=== PATIENT | female | born 1990 | race Caucasian/White ===

== ENCOUNTER 2019-11-15 10:04 | Observation (INO) | payer SELFPAY ==
[2019-11-15] VITALS (16 sets, daily range): BP systolic 88–115; BP diastolic 50–68; PULSE 82–120; RESP 15–20; TEMP 36.6–36.8; O2SAT 97–100; BMI 28.2
--- NOTE | 2019-11-15 10:47 | W.ED.FEMALGU ---
HPI - Female Genitourinary General: Chief complaint: Abdominal Pain Stated complaint: Vag bleeding Time Seen by Provider: 11/15/19 10:23 Source: patient Mode of arrival: ambulatory Limitations: no limitations History of Present Illness: HPI Narrative: pt is a female at 14 wks here for evaluation following an US yesterday at [facility] which showed demise; pt concerned bc bleeding continues to worsen MD elicited complaint: vaginal bleeding Consistency: constant Vaginal bleeding: heavy Associated symptoms: Reports abdominal pain and vaginal bleeding; Deny nausea Patient : Yes Date of Last Menstrual Period: 07/30/19 Review of Systems GI: Reports: abdominal pain; Denies: nausea or vomiting : Reports: vaginal bleeding and pelvic pain; Denies: difficulty urinating, painful urination, urinary frequency, urinary urgency or urinary hesitancy PFSH ED PFSH: Statuses (acute, chronic, etc) shown below reflect problem list status as previously entered and may not be historically accurate Social History Smoking and tobacco status: never smoked Female Reproductive History: Date of last menstrual period: 07/30/19 Physical Exam Const: COMMON NORMALS: no apparent distress, average body habitus, oriented x3, healthy appearing, alert and well nourished Resp: COMMON NORMALS: normal respiratory effort and clear to auscultation bilaterally AUSCULTATION: clear to auscultation bilaterally Cardio: COMMON NORMALS: regular rate and regular rhythm RATE: regular rate RHYTHM: regular rhythm : SPECULUM EXAM - VAGINA: Yes vaginal bleeding Amount: large/heavy and Yes tissue present in vagina (amniotic sac visualized) OB/EXTERNAL & SPECULUM: tissue present in vagina (amniotic sac visualized) and vaginal bleeding Neuro: COMMON NORMALS: oriented x3 SENSORIUM/ORIENTATION: Yes alert Course Vital Signs: Vital signs: Vital Signs Temperature 98.3 F 11/15/19 10:14 Pulse Rate 87 11/15/19 12:05 Respiratory Rate 16 11/15/19 12:05 Blood Pressure 94/54 11/15/19 12:05 Pulse Oximetry 99 11/15/19 12:05 MDM - Female MDM Narrative: Medical decision making narrative: Dr. Velasco was requested after I visualized partial amniotic sac in her vaginal canal. Dr. Cavanaugh ruptured sac and removed products of conception (these were sent for pathology); patient continued to have heavy bleeding; Dr. Albino was promptly consulted to take patient to the OR for a D&C; pt given cytotec, TXA, hemabate here; rhogam ordered as pt is O neg Lab Data: Labs: Lab Results 11/15/19 11/15/19 11/15/19 Range/Units 10:35 10:35 10:47 WBC 9.7 (4.0-10.0) 10^3/ uL RBC 3.84 L (4.1-5.3) 10^6/u L Hgb 11.3 L (11.5-15.3) g/dL Hct 33.8 L (37.0-47.0) % MCV 88.0 (81-99) fL MCH 29.4 (28.0-34.0) pg MCHC 33.4 (30.0-36.0) g/dL RDW 13.9 (12.1-15.1) % Plt Count 179 (130-400) 10^3/c mm MPV 9.6 (7.4-10.4) fL Neut % (Auto) 75.2 % Lymph % (Auto) 19.1 % [place] % (Auto) 4.5 % Eos % (Auto) 0.6 % Baso % (Auto) 0.2 % Neut # (Auto) 7.3 (1.8-7.7) 10^3/u L Lymph # (Auto) 1.9 (0.8-4.8) 10^3/u L [place] # (Auto) 0.4 (0.2-0.9) 10^3/u L Eos # (Auto) 0.1 (0.0-0.8) 10^3/u L Baso # (Auto) 0.0 (0.0-0.1) 10^3/u L Nucleated RBC % (a uto) 0 % Nucleated RBCs # 0.0 /100WBC Sodium 139 (136-145) mmol/L Potassium 3.6 (3.5-5.1) mmol/L Chloride 105 (98-107) mmol/L Carbon Dioxide 24 (22-29) mmol/L Anion Gap 13.6 (5-19) BUN 10 (6-20) mg/dL Creatinine 0.6 (0.5-0.9) mg/dL GFR Calculation 119.0 (90-130) mL/min Glucose 112 H (74-109) mg/dL Calcium 9.2 (8.6-10.0) mg/Dl Total Bilirubin 0.3 (0.15-1.2) mg/dL AST 18 (0-32) U/L ALT 11 (0-33) U/L Alkaline Phosphata se 48 (35-105) IU/L Total Protein 6.8 (6.6-8.7) g/dL Albumin 4.0 (3.5-5.2) g/dL Globulin 2.8 (1.3-4.6) g/dL Blood Type O Negative Crossmatch See Detail Discharge Plan Discharge Patient Disposition: Xfer Other Clinical Impression: Incomplete miscarriage Condition: Stable Discharge Date/Time: 11/15/19 12:06 Coding Level of Care Code ED Dye Weigher for Jamal Chou Exam Problem Focused
[2019-11-15 10:49] LABS: Basophils % 0.2 %; Eosinophils # 0.1 10^3/uL (0.0-0.8); Eosinophils % 0.6 %; Hematocrit 33.8 % (37.0-47.0); Hemoglobin 11.3 g/dL (11.5-15.3); Lymphocytes # 1.9 10^3/uL (0.8-4.8); Lymphocytes % 19.1 %; Mean Corpuscular HGB Conc 33.4 g/dL (30.0-36.0); Mean Corpuscular Hemoglobin 29.4 pg (28.0-34.0); Mean Platelet Volume 9.6 fL (7.4-10.4); Monocytes # 0.4 10^3/uL (0.2-0.9); Monocytes % 4.5 %; Neutrophils # 7.3 10^3/uL (1.8-7.7); Neutrophils % 75.2 %; Nucleated Red Blood Cells % 0 %; Platelet Count 179 10^3/cmm (130-400); Red Blood Count 3.84 10^6/uL (4.1-5.3); Red Cell Distribution Width 13.9 % (12.1-15.1); White Blood Count 9.7 10^3/uL (4.0-10.0)
[2019-11-15 10:58] LABS: Alanine Aminotransferase 11 U/L (0-33); Alkaline Phosphatase 48 IU/L (35-105); Anion Gap 13.6 (5-19); Aspartate Amino Transferase 18 U/L (0-32); Blood Urea Nitrogen 10 mg/dL (6-20); Calcium 9.2 mg/Dl (8.6-10.0); Carbon Dioxide 24 mmol/L (22-29); Chloride 105 mmol/L (98-107); Globulin 2.8 g/dL (1.3-4.6); Glucose 112 mg/dL (74-109); Potassium 3.6 mmol/L (3.5-5.1); Sodium 139 mmol/L (136-145); Total Bilirubin 0.3 mg/dL (0.15-1.2); Total Protein 6.8 g/dL (6.6-8.7)
[2019-11-15] MEDS: ondansetron 2 mg/ML SDV 2 mL IVP (11:04)
[2019-11-15] MEDS: morphine 4 mg/mL SDV 1 mL 2 MG IVP (11:05)
--- NOTE | 2019-11-15 11:56 | W.ED.ABDPA2 ---
HPI - Abdominal Pain General: Chief Complaint: Abdominal Pain Stated Complaint: Vag bleeding Time Seen by Provider: 11/15/19 10:23 Related Data: Date of Last Menstrual Period: 07/30/19 [facility] ED PFSH: Statuses (acute, chronic, etc) shown below reflect problem list status as previously entered and may not be historically accurate Social History Smoking and tobacco status: never smoked Female Reproductive History: Date of last menstrual period: 07/30/19 Physical Exam : OTHER: Was called by physicians ssn/ssbn assistant navigator Chelita Briones to assist with the pelvic exam palm arrival in the room patient in dorsolithotomy position speculum in place patient was actively bleeding. On exam there is amniotic sac protruding from the office. This was ruptured with a ring forceps. Identified products of conception in the office which was retrieved with a ring forceps as well as some membranes. What appeared to be a umbilical cord was present attempted to remove intact with placenta was unable to do so. Bimanual exam done was unable to manually retrieve the placenta patient continues to actively bleed. Tampon is fashioned from 4 x 4's and placed in the vaginal vault. Patient given Cytotec 800 per rectum, Hemabate 250 mcg IM and TXA IV. Dr. Lopez is on-call I contacted him for emergent suction curettage. Patient was seen by Dr. Lopez in the exam room he agrees with plan and will take her directly from the ER to the OR for this. Patient is Rh- hemoglobin and platelets were reviewed with Dr. Lopez. Discussed course of care with patient and her they expressed understanding. For the remainder of the ER course see Chelita Briones's notes.. Course Vital Signs: Vital signs: Vital Signs Temperature 98.3 F 11/15/19 10:14 Pulse Rate 82 11/15/19 10:14 Respiratory Rate 16 11/15/19 10:14 Blood Pressure 99/51 11/15/19 10:14 Pulse Oximetry 99 11/15/19 10:14 MDM - Abdominal Pain Lab Data: Labs: Lab Results 11/15/19 11/15/19 11/15/19 Range/Units 10:35 10:35 10:47 WBC 9.7 (4.0-10.0) 10^3/ uL RBC 3.84 L (4.1-5.3) 10^6/u L Hgb 11.3 L (11.5-15.3) g/dL Hct 33.8 L (37.0-47.0) % MCV 88.0 (81-99) fL MCH 29.4 (28.0-34.0) pg MCHC 33.4 (30.0-36.0) g/dL RDW 13.9 (12.1-15.1) % Plt Count 179 (130-400) 10^3/c mm MPV 9.6 (7.4-10.4) fL Neut % (Auto) 75.2 % Lymph % (Auto) 19.1 % [place] % (Auto) 4.5 % Eos % (Auto) 0.6 % Baso % (Auto) 0.2 % Neut # (Auto) 7.3 (1.8-7.7) 10^3/u L Lymph # (Auto) 1.9 (0.8-4.8) 10^3/u L [place] # (Auto) 0.4 (0.2-0.9) 10^3/u L Eos # (Auto) 0.1 (0.0-0.8) 10^3/u L Baso # (Auto) 0.0 (0.0-0.1) 10^3/u L Nucleated RBC % (a uto) 0 % Nucleated RBCs # 0.0 /100WBC Sodium 139 (136-145) mmol/L Potassium 3.6 (3.5-5.1) mmol/L Chloride 105 (98-107) mmol/L Carbon Dioxide 24 (22-29) mmol/L Anion Gap 13.6 (5-19) BUN 10 (6-20) mg/dL Creatinine 0.6 (0.5-0.9) mg/dL GFR Calculation 119.0 (90-130) mL/min Glucose 112 H (74-109) mg/dL Calcium 9.2 (8.6-10.0) mg/Dl Total Bilirubin 0.3 (0.15-1.2) mg/dL AST 18 (0-32) U/L ALT 11 (0-33) U/L Alkaline Phosphata se 48 (35-105) IU/L Total Protein 6.8 (6.6-8.7) g/dL Albumin 4.0 (3.5-5.2) g/dL Globulin 2.8 (1.3-4.6) g/dL Blood Type O Negative Crossmatch See Detail Discharge Plan Discharge Prescriptions: No Action No Known Home Medications RF: 0 Coding Level of Care Code ED Health Care Analyst for Jamal Chou
[2019-11-15] MEDS: carboprost tromethamine 250 mcg/mL Amp IM (11:58)
[2019-11-15] MEDS: miSOPROStol 200 mcg Tablet 800 MCG VAGINAL (11:58)
--- NOTE | 2019-11-15 12:03 | PC.NURSE ---
Patient to OR at this time
--- NOTE | 2019-11-15 12:15 | ANES.PREANES ---
Pre-Anesthetic Assessment Pre-Anesthetic Assessment: Height/Weight: Height 1.47 m Weight 61.235 kg Temp Pulse Resp BP Pulse Ox 98.3 F 87 16 94/54 99 11/15/19 10:14 11/15/19 12:05 11/15/19 12:05 11/15/19 12:05 11/15/19 12:05 Proposed Procedure: Operation Date: 11/15/19 12:25 Proposed Procedures p Dilation And Curettage (D&C)(Not Applicable) - Phani Lopez MD Was Beta Shahram taken within 24 hours: N/A Last Intake: 08:00 Social: Social History: No alcohol and No tobacco Exam: Pre-Anes Outpt Exam: alert, oriented x 3, clear to auscultation bilaterally and regular rate & rhythm Airway: Submandibular: WNL Cervical ROM: WNL MP: 1 Dentition: Full History/ROS: No significant history except as noted and No significant complaints Pulmonary: Pulmonary: None reported CV/HEM: CV/HEM: None reported : : None reported Hepatic: Hepatic: None reported GI: GI: None reported Metabolic: Metabolic: None reported Musc/skel: Musc/skel: None reported Neuropsych: Neuropsych: None reported Anesthetic Plan: ASA status: E Anesthesia: General Risk of > 500 ml blood loss (7ml/kg in children): No PFSH Anesthesia PFSH: Social History Smoking and tobacco status: never smoked Female Reproductive History: Date of last menstrual period: 07/30/19 Data Anesthesia CBC & Chem 7: 11/15/19 10:35 11/15/19 10:35 Other Labs: Laboratory Results - last 48 hr 11/15/19 11/15/19 11/15/19 10:35 10:35 10:47 WBC 9.7 RBC 3.84 L Hgb 11.3 L Hct 33.8 L MCV 88.0 MCH 29.4 MCHC 33.4 RDW 13.9 Plt Count 179 MPV 9.6 Neut % (Auto) 75.2 Lymph % (Auto) 19.1 [place] % (Auto) 4.5 Eos % (Auto) 0.6 Baso % (Auto) 0.2 Neut # (Auto) 7.3 Lymph # (Auto) 1.9 [place] # (Auto) 0.4 Eos # (Auto) 0.1 Baso # (Auto) 0.0 Nucleated RBC % (auto) 0 Nucleated RBCs # 0.0 Sodium 139 Potassium 3.6 Chloride 105 Carbon Dioxide 24 Anion Gap 13.6 BUN 10 Creatinine 0.6 GFR Calculation 119.0 Glucose 112 H Calcium 9.2 Total Bilirubin 0.3 AST 18 ALT 11 Alkaline Phosphatase 48 Total Protein 6.8 Albumin 4.0 Globulin 2.8 Blood Type O Negative Crossmatch See Detail Cardiac Studies: No Data to Display
[2019-11-15] MEDS: lactated ringers 1,000 ML 30 ML IV (12:22)
[2019-11-15] MEDS: ceFAZolin 1,000 MG in sodium chloride 0.9% (plus) 50 ML 100 MG IV (12:25)
--- NOTE | 2019-11-15 13:01 | PM.OP ---
Operative Report Date of procedure: 11/15/19 Preop Diagnosis: Incomplete AB Post-op Findings: Products of conception Procedure Done: Dilation and curettage Implants: None Specimens removed/disposition: Products of conception Surgeon: Phani Lopez Anesthesia: general Estimated blood loss (mL): 100 IV fluids (mL): 800 Complications: None Procedure: After informed consent, the patient was taken to the Operating Room where general anesthesia was administered. The patient was examined under anesthesia and found to have a normal uterus with normal adnexa. She was placed in the dorsal lithotomy position and prepped and draped in sterile fashion. A sterile weighted speculum was placed in the patient?s vagina. A single-tooth tenaculum was then applied to the cervix. With ring forceps product of conception that was noted at the cervical was extracted. The uterus was then gently sounded to 14 cm and a suction curette was advanced gently to the uterine fundus and product of conception emptied. A sharp curettage was then performed until a gritty texture was noted. There was minimal bleeding noted and the tenaculum was removed with good hemostasis noted. The patient tolerated the procedure well. The patient was taken to the recovery area in stable condition.
--- NOTE | 2019-11-15 13:04 | SUR.PHASEI ---
1257 PATIENT TO PACU AT THIS TIME FROM OR. RR EVEN AND UNLABORED. RESPONDS TO VERBAL STIMULI. SPO2 99% ON ROOM AIR.
--- NOTE | 2019-11-15 13:44 | SUR.PHASEI ---
132 PATIENT TO OB AT THIS TIME VIA DEREK. SPOUSE AT BEDSIDE. PATIENT A/OX3. RR EVEN AND UNLABORED. PWD.
--- NOTE | 2019-11-15 13:44 | SUR.PHASEI ---
VSS WHEN ARRIVING TO OB 107/70 100% RA 98.2 RR 16 P 100
--- NOTE | 2019-11-15 14:53 | PM.PACU ---
PACU note Post-Anesthesia Exam: awake and vital signs stable Disposition: back to floor
--- NOTE | 2019-11-15 18:30 | PM.SDS ---
Short Stay Summary Providers Date of Admit/Discharge: 11/15/19 Attending Provider: Phani Lopez MD Primary Care Provider: Phani Lopez MD Chief Complaint: Vag bleeding HPI History of Present Illness Davina Lara is a 28 year old female with an LMP of 07/30/2019 with an estimated gestational age of 15 weeks 3 days, came to the emergency room with perfuse vaginal bleeding and passing product conception. At the emergency room upon examination the fetus was noted in the vagina and cervical os and was extracted. However she continue with perfuse vaginal bleeding and retained product conception. patient was taken to the operating room urgently to evacuate the uterus from remaining product conception and control bleeding. Review of Systems General: Reports: 10 or more systems reviewed and unremarkable except in HPI and below Const: Denies: fever or body aches Eyes: Denies: change in vision or blurry vision Card: Denies: chest pain, palpitations or irregular heart rhythm Resp: Denies: shortness of breath GI: Denies: abdominal pain, nausea or vomiting : Reports: vaginal bleeding; Denies: flank pain, difficulty urinating, painful urination, urinary frequency, urinary urgency, urinary incontinence, genital lesion, genital itching, vaginal dryness, vaginal odor, vaginal discharge, painful menstruation, irregular period, bleeding between periods, absence of menstruation, pelvic pain, prolapse symptoms or pain during intercourse Home Meds/Allergies Home Medications and Allergies Home Medications Medication Instructions Recorded Confirmed Type No Known Home Medications 11/15/19 11/15/19 History Allergies Allergy/AdvReac Type Severity Reaction Status Date / Time No Known Allergies Allergy Verified 11/15/19 10:20 PFSH Acute PFSH: Statuses (acute, chronic, etc) shown below reflect problem list status as previously entered and may not be historically accurate Family History (Updated 11/15/19 @ 18:09 by Alexandra Garcia RN) Father Hypertension Social History (Updated 11/15/19 @ 18:09 by Alexandra Garcia RN) Smoking and tobacco status: never smoked Alcohol intake: never Substance/Drug Use: never Adopted: No Caregiver/support person: Yes Lives independently: No Household members: spouse and children Housing: House Marital status: Number of children: 3 service: No Current occupational status: unemployed Current occupational exposures/hazards: No Pets and animals: Yes History of recent travel: No Sexually active: Yes Special olimpia needs: No Agree to transfusion: Yes Female Reporductive History: Date of last menstrual period: 07/30/19 Vitals/I&O/Wt Last Vital Signs Temp 98 F 11/15/19 16:07 Pulse 87 11/15/19 16:07 Resp 18 11/15/19 16:07 BP 97/61 11/15/19 16:07 Pulse Ox 100 11/15/19 16:07 11/15/19 11/15/19 11/15/19 06:59 14:59 22:59 Intake Total 160 / 160 880 / 1040 Output Total 400 / 400 600 / 1000 Balance -240 / -240 280 / 40 Weight last 48 hrs Weight 135 lb Physical Exam Narrative: EXAM NARRATIVE: GA; alert and oriented x 3 HEENT: normal Breasts: normal Lungs; clear to auscultation Heart: regular rhythm, no murmurs. Abd: Appropriately tender. BS+. Uterine fundus below umbilicus. No Fundal Tenderness. Perineum: normal lochia. Extremities: no edema, no cyanosis, no tenderness. Urinary Catheter Management^: Straight: Cath Placed During This Visit: no Hospital Course Hospital Course: she was admitted urgently for dilation and curettage due to incomplete . The procedures were performed without complication. Immediate postprocedure observation was uneventful. 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 Unknown MMR status however she refused the vaccine. SSS Data Data Completed and Pending: Pending at discharge Category Date Time Status Complete Crossmat ch Routine Lab 11/15/19 10:47 Results Hemagram Routine Lab 11/15/19 18:00 Ordered Leukocyte Reduced RBC Routine Lab 11/15/19 10:47 Results Rho D Immune Glob ulin Routine Lab 11/15/19 10:47 Results Type and Screen R outine Lab 11/15/19 10:47 Results Pathology: Surgic al [PTH] Stat Pth 11/15/19 11:55 Received Pathology: Surgic al [PTH] Stat Pth 11/15/19 13:01 Ordered Diagnoses at Discharge Discharge Diagnosis (1) Incomplete miscarriage: Status: Acute Problem details: The patient is status post dilation and curettage. postprocedure observation uneventful. She is afebrile and hemodynamically stable. Tolerating diet well Discharge Plan Discharge Patient Disposition: Home, Self-Care Condition: Stable Prescriptions: New -U 106.5-1 mg Capsule 1 cap PO DAILY Qty: 60 RF: 0 docusate sodium 100 mg Capsule 100 mg PO BID Qty: 60 RF: 0 ferrous sulfate [Iron (ferrous sulfate)] 325 mg (65 mg iron) tablet 325 mg PO BID Qty: 60 RF: 0 No Action No Known Home Medications RF: 0 Discharge Orders: Discharge Order (Routine); Ordered 11/15/19 Ordered By: Phani Lopez Discharge Diet: Regular Discharge Activity: Increase activity as tolerated Patient Instructions: Spontaneous Miscarriage (GEN) Activity Restrictions/Additional Instructions: pelvic rest for 6 weeks. Return to the emergency room if any fever, increased bleeding or pain. Attestations Medical Necessity Statement*: my professional opinion per admitting diagnosis Time Spent in Patient Care*: greater than 30 min Specific Discharge Activities: Specific discharge activities: educating patient and educating and/or supporting family/caregiver Quality Metrics Clinical Quality Measures: During this hospital stay, did patient experience: None Coding Level of Care Code Acute Refining Equipment Operator for Jamal Chou Medical Decision Making Moderate Complexity Diagnoses Incomplete miscarriage O03.4 Time Spent (min) 50
[2019-11-15 19:01] LABS: Hematocrit 27.2 % (37.0-47.0); Mean Corpuscular HGB Conc 33.1 g/dL (30.0-36.0); Mean Corpuscular Hemoglobin 30.2 pg (28.0-34.0); Mean Corpuscular Volume 91.3 fL (81-99); Mean Platelet Volume 10.1 fL (7.4-10.4); Platelet Count 181 10^3/cmm (130-400); Red Blood Count 2.98 10^6/uL (4.1-5.3); Red Cell Distribution Width 13.9 % (12.1-15.1); White Blood Count 11.5 10^3/uL (4.0-10.0)
== END 2019-11-15 19:37 | disposition home or self-care (01) ==
LOC: ER 12:00 → OR 12:12 → OBGYN 13:17
PROVIDERS: Physician Assistant; Admitting Provider Obstetrics & Gynecology; Emergency Provider Family Medicine; PCP Obstetrics & Gynecology; Visit Provider Obstetrics & Gynecology
PROC: (CPT 58120; principal; 2019-11-15 12:15)
DX: O03.4 Incomplete spontaneous abortion without complication (principal); Z3A.15 15 weeks gestation of pregnancy
CPT/HCPCS: 59821; 12345; 36415; 80053; 85025; 85027; 86850; 86900; 88305; 96361; 96365; 96372; 96374; 96375; 99281; 99285; G0378; J0330; J0690; J1100; J1885; J2001; J2270; J2405; J2704; J3010

== ENCOUNTER 2020-11-08 21:59 | Observation (INO) | payer SELFPAY ==
[2020-11-08 22:08] VITALS: BP 119/81; PULSE 114; RESP 16; TEMP 36.1; O2SAT 100; BMI 25.0
--- NOTE | 2020-11-08 22:19 | USR_ITS ---
PROCEDURE INFORMATION: Exam: US First Trimester, Transabdominal and US , Transvaginal Exam date and time: 11/08/2020 11:51 PM Age: 29 years old Clinical indication: complicated by abdominal or pelvic pain; Lower; First trimester; Gestational age or lmp: 7 to 8 weeks; ; Prior surgery; Surgery date: 6+ months; Surgery type: D and c; Patient HX: Heavy bleeding; Additional info: Miscarriage TECHNIQUE: Imaging protocol: Real-time transabdominal obstetrical ultrasound of the maternal pelvis and a first trimester , less than 14 weeks 0 days, with image documentation. Transvaginal imaging was used for better evaluation of the fetus, adnexa, and/or cervix. COMPARISON: No relevant prior studies available. FINDINGS: No visible intrauterine gestational sac or fetus. Prominent amount of complex fluid/debris in the endometrial canal and cervix. In the uterus, this measures up to 58 x 40 x 50 mm. This appearance is likely secondary to blood/clot in the endometrial canal. Color Doppler imaging does not show definite increased blood flow within the endometrium at this time. No free pelvic fluid. Neither ovary is definitely identified at this time. Adnexal regions appear essentially unremarkable on the provided images. The sonographic appearance from this single exam alone is nonspecific. However, given the history, miscarriage in progress or incomplete miscarriage is probably most likely. The differential diagnosis would include; an early viable intrauterine less than four to five weeks gestation; a miscarriage; as well as an occult ectopic . Appropriate clinical follow up, including HCG level follow-up is recommended. The urinary bladder was not completely evaluated/imaged at this time. US/US OB <= 14 weeks fetus [id number] IMPRESSION: 1. No visible intrauterine gestational sac or fetus. 2. Prominent amount of complex fluid/debris in the endometrial canal and cervix, details above. 3. See above discussion and recommendations. 4. Other details discussed above.
--- NOTE | 2020-11-08 22:22 | W.ED.PREGNAN ---
HPI - General: Chief complaint: Vaginal Bleeding Stated complaint: vaginal bleeding Time Seen by Provider: 11/08/20 22:19 Source: patient Mode of arrival: ambulatory Limitations: no limitations History of Present Illness: HPI Narrative: 29-year-old female states that she recently had a miscarriage. 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 She received a RhoGam shot yesterday. She states that today she has had bleeding again with some nausea and vomiting and feeling lightheaded. She has had slight abdominal cramping. Denies any worsening improving factors. Date of Last Menstrual Period: 07/30/19 Associated symptoms: Reports nausea and vomiting; Deny headache(s) Review of Systems Const: Denies: fever(s), chills, body aches or change in appetite Eyes: Denies: blurry vision or eye discomfort ENMT: Denies: throat pain or dental pain Card: Denies: chest pain Resp: Denies: dyspnea GI: Reports: nausea and vomiting : Reports: vaginal bleeding Musc: Denies: neck pain or back pain Skin/Breast: Denies: rash Neuro: Denies: headache(s) Psych: Denies: depression Jovanny/Lymph: Denies: easy bruising All/Imm: Denies: urticaria PFSH ED PFSH: Family History (Updated 11/15/19 @ 18:09 by Alexandra Garcia RN) Father Hypertension Social History (Updated 11/15/19 @ 18:09 by Alexandra Garcia RN) Smoking and tobacco status: never smoked Alcohol intake: never Adopted: No Caregiver/support person: Yes Lives independently: No Household members: spouse and children Housing: House Marital status: Number of children: 3 service: No Current occupational status: unemployed Current occupational exposures/hazards: No Pets and animals: Yes History of recent travel: No Sexually active: Yes Special olimpia needs: No Agree to transfusion: Yes Female Reproductive History: Date of last menstrual period: 07/30/19 Physical Exam Const: COMMON NORMALS: no acute distress, patient oriented x3 and healthy appearing HENMT: COMMON NORMALS: normocephalic and atraumatic HEAD & SCALP: normocephalic and atraumatic Eye: COMMON NORMALS: Equal, round and reactive pupils present and EOMs intact bilaterally PUPIL: Yes Equal, round and reactive pupils present Neck/C-Spine: COMMON NORMALS: full ROM and supple Chest: COMMONS NORMALS: normal inspection of the chest and normal palpation of entire chest wall Resp: COMMON NORMALS: normal respiratory effort, No retractions, No use of accessory muscles and clear to auscultation bilaterally AUSCULTATION: clear to auscultation bilaterally Cardio: COMMON NORMALS: regular rate, regular rhythm and No murmurs present (Cardio) RATE: regular rate RHYTHM: regular rhythm GI: COMMON NORMALS: Normal to inspection, nondistended, normoactive bowel sounds present, Soft to palpation, non-tender and no masses PALPATION: Yes Soft to palpation : OTHER: Multiple clots evacuated evacuated of blood clot from the cervix. Patient had a large amount of bleeding during pelvic exam but is since stopped after the clots were removed at this time. Extremity: COMMON NORMALS: normal to inspection and full ROM Neuro: COMMON NORMALS: patient oriented x3, moves all extremities and no focal motor deficits Psych: COMMON NORMALS: mental status grossly normal, Normal thought process present and cooperative THOUGHT PROCESS: Normal thought process present Skin: COMMON NORMALS: no rashes or lesions noted and no wounds GENERAL SKIN EXAM: no rashes or lesions noted Course Vital Signs: Vital signs: Vital Signs Temperature 97.0 F L 11/08/20 22:08 Pulse Rate 96 11/09/20 00:13 Respiratory Rate 15 11/09/20 00:13 Blood Pressure 109/55 11/09/20 00:13 Pulse Oximetry 100 11/09/20 00:13 MDM - OB/Uterine Contractions MDM Narrative: Medical decision making narrative: Patient presents here with miscarriage. Ultrasound here showed clots and possible retained products. Patient's bleeding is slowed down here after I removed the clot and give her immediate postop. She did have a hemoglobin drop and we will transfuse her. I spoke to Dr. Lopez and will admit to the CHAIRMAN PRESIDENT AND CHIEF EXECUTIVE OFFICER floor. Lab Data: Labs: Lab Results 11/08/20 11/08/20 11/08/20 Range/Units 22:29 22:29 22:29 WBC 6.4 (4.0-10.0) 10^3/ uL RBC 3.31 L (4.1-5.3) 10^6/u L Hgb 10.1 L (11.5-15.3) g/dL Hct 30.5 L (37.0-47.0) % MCV 92.1 (81-99) fL MCH 30.5 (28.0-34.0) pg MCHC 33.1 (30.0-36.0) g/dL RDW 12.4 (12.1-15.1) % Plt Count 218 (130-400) 10^3/c mm MPV 10.0 (7.4-10.4) fL Neut % (Auto) 43.3 % Lymph % (Auto) 46.9 % [place] % (Auto) 7.1 % Eos % (Auto) 1.7 % Baso % (Auto) 0.5 % Neut # (Auto) 2.77 (1.8-7.7) 10^3/u L Lymph # (Auto) 3.0 (0.8-4.8) 10^3/u L [place] # (Auto) 0.5 (0.2-0.9) 10^3/u L Eos # (Auto) 0.1 (0.0-0.8) 10^3/u L Baso # (Auto) 0.0 (0.0-0.1) 10^3/u L Nucleated RBC % (a uto) 0 % Nucleated RBCs # 0.0 /100WBC Sodium 136 (136-145) mmol/L Potassium 3.5 (3.5-5.1) mmol/L Chloride 101 (98-107) mmol/L Carbon Dioxide 24 (22-29) mmol/L Anion Gap 14.5 (5-19) BUN 12 (6-20) mg/dL Creatinine 0.6 (0.5-0.9) mg/dL GFR Calculation 118.2 (90-130) mL/min Glucose 138 H (65-115) mg/dL Calculated Osmolal ity 284 L (285-295) mOsm/k g Calcium 9.3 (8.5-10.5) mg/dL Total Bilirubin 0.2 (0.15-1.2) mg/dL AST 14 (0-32) U/L ALT 12 (0-33) U/L Alkaline Phosphata se 38 (35-105) IU/L Total Protein 6.5 L (6.6-8.7) g/dL Albumin 4.1 (3.5-5.2) g/dL Globulin 2.4 (1.3-4.6) g/dL Ser , [place]nt 646[address].00 mIU/mL Blood Type O Negative Rho(D) Type Negative Antibody Screen Positive Antibody Identific ation Anti-D Crossmatch See Detail 11/08/20 Range/Units 23:57 WBC (4.0-10.0) 10^3/ uL RBC (4.1-5.3) 10^6/u L Hgb 8.0 L (11.5-15.3) g/dL Hct 24.1 L (37.0-47.0) % MCV (81-99) fL MCH (28.0-34.0) pg MCHC (30.0-36.0) g/dL RDW (12.1-15.1) % Plt Count (130-400) 10^3/c mm MPV (7.4-10.4) fL Neut % (Auto) % Lymph % (Auto) % [place] % (Auto) % Eos % (Auto) % Baso % (Auto) % Neut # (Auto) (1.8-7.7) 10^3/u L Lymph # (Auto) (0.8-4.8) 10^3/u L [place] # (Auto) (0.2-0.9) 10^3/u L Eos # (Auto) (0.0-0.8) 10^3/u L Baso # (Auto) (0.0-0.1) 10^3/u L Nucleated RBC % (a uto) % Nucleated RBCs # /100WBC Sodium (136-145) mmol/L Potassium (3.5-5.1) mmol/L Chloride (98-107) mmol/L Carbon Dioxide (22-29) mmol/L Anion Gap (5-19) BUN (6-20) mg/dL Creatinine (0.5-0.9) mg/dL GFR Calculation (90-130) mL/min Glucose (65-115) mg/dL Calculated Osmolal ity (285-295) mOsm/k g Calcium (8.5-10.5) mg/dL Total Bilirubin (0.15-1.2) mg/dL AST (0-32) U/L ALT (0-33) U/L Alkaline Phosphata se (35-105) IU/L Total Protein (6.6-8.7) g/dL Albumin (3.5-5.2) g/dL Globulin (1.3-4.6) g/dL Ser , [place] i-Qnt mIU/mL Blood Type Rho(D) Type Antibody Screen Antibody Identific ation Crossmatch Discharge Plan Discharge Patient Disposition: Admitted As Inpatient Admit Provider: Phani Lopez Clinical Impression: Incomplete Condition: Stable Coding Level of Care Code ED Marketer for Chg Fwd Exam Comprehensive
[2020-11-08] MEDS: sodium chloride 0.9% 1,000 ML 999 ML IV (22:30)
[2020-11-08] MEDS: ondansetron 2 mg/ML SDV 2 mL 4 MG IVP (22:34)
[2020-11-08 22:40] LABS: Basophils % 0.5 %; Eosinophils # 0.1 10^3/uL (0.0-0.8); Eosinophils % 1.7 %; Hematocrit 30.5 % (37.0-47.0); Hemoglobin 10.1 g/dL (11.5-15.3); Lymphocytes % 46.9 %; Mean Corpuscular HGB Conc 33.1 g/dL (30.0-36.0); Mean Corpuscular Hemoglobin 30.5 pg (28.0-34.0); Mean Corpuscular Volume 92.1 fL (81-99); Monocytes # 0.5 10^3/uL (0.2-0.9); Monocytes % 7.1 %; Neutrophils # 2.77 10^3/uL (1.8-7.7); Neutrophils % 43.3 %; Nucleated Red Blood Cells % 0 %; Platelet Count 218 10^3/cmm (130-400); Red Blood Count 3.31 10^6/uL (4.1-5.3); Red Cell Distribution Width 12.4 % (12.1-15.1); White Blood Count 6.4 10^3/uL (4.0-10.0)
[2020-11-08 22:53] LABS: Alanine Aminotransferase 12 U/L (0-33); Albumin Level 4.1 g/dL (3.5-5.2); Alkaline Phosphatase 38 IU/L (35-105); Anion Gap 14.5 (5-19); Aspartate Amino Transferase 14 U/L (0-32); Blood Urea Nitrogen 12 mg/dL (6-20); Calcium 9.3 mg/dL (8.5-10.5); Carbon Dioxide 24 mmol/L (22-29); Chloride 101 mmol/L (98-107); Globulin 2.4 g/dL (1.3-4.6); Glomerular Filtration Rate 118.2 mL/min (90-130); Glucose 138 mg/dL (65-115); Osmolality Calculated 284 mOsm/kg (285-295); Potassium 3.5 mmol/L (3.5-5.1); Sodium 136 mmol/L (136-145); Total Bilirubin 0.2 mg/dL (0.15-1.2); Total Protein 6.5 g/dL (6.6-8.7)
[2020-11-08] MEDS: miSOPROStol 100 mcg tablet 600 MCG PO (22:55)
[2020-11-08 22:56] VITALS: BP 105/61; PULSE 90; RESP 16; O2SAT 100
[2020-11-09] VITALS (35 sets, daily range): BP systolic 85–109; BP diastolic 34–69; PULSE 94–126; RESP 13–22; TEMP 36.6–37.4; O2SAT 96–100
[2020-11-09 00:01] LABS: Hematocrit 24.1 % (37.0-47.0)
--- NOTE | 2020-11-09 02:39 | PC.NURSE ---
patient cleaned and repositioned by nurse. patient chux changed out. patient saturated second set of chux with blood and clots.
[2020-11-09 03:21] LABS: Hematocrit 19.7 % (37.0-47.0); Hemoglobin 6.4 g/dL (11.5-15.3)
[2020-11-09] MEDS: calcium gluconate 0.1 gm/mL 10% SDV 10mL 1 GM IVP (03:22)
--- NOTE | 2020-11-09 03:44 | ANES.PREANE2 ---
Pre-Anesthetic Assessment Pre-Anesthetic Assessment: Height/Weight: Height 1.47 m Weight 54.431 kg Temp Pulse Resp BP Pulse Ox 98.5 F 104 H 18 105/55 100 11/09/20 03:19 11/09/20 03:19 11/09/20 03:19 11/09/20 03:39 11/09/20 03:39 Preop Diagnosis: Incomplete AB Proposed Procedure: Operation Date: 11/09/20 03:45 Proposed Procedures p Dilation And Curettage (D&C)(Not Applicable) - Phani Lopez MD Last intake: Intake Last Liquid Date 11/08/20 Last Liquid Time 22:00 Last Solid Date 11/08/20 Last Solid Time 18:30 Social: Social History: No alcohol and No tobacco PFSH Anesthesia PFSH: Family History (Updated 11/15/19 @ 18:09 by Alexandra Garcia RN) Father Hypertension Social History (Updated 11/15/19 @ 18:09 by Alexandra Garcia RN) Smoking and tobacco status: never smoked Alcohol intake: never Adopted: No Caregiver/support person: Yes Lives independently: No Household members: spouse and children Housing: House Marital status: Number of children: 3 service: No Current occupational status: unemployed Current occupational exposures/hazards: No Pets and animals: Yes History of recent travel: No Sexually active: Yes Special olimpia needs: No Agree to transfusion: Yes Female Reproductive History: Date of last menstrual period: 07/30/19 : 6 Data Anesthesia CBC & Chem 7: 11/09/20 02:36 11/08/20 22:29 Other Labs: Laboratory Results - last 48 hr 11/08/20 11/08/20 11/08/20 22:29 22:29 22:29 WBC 6.4 RBC 3.31 L Hgb 10.1 L Hct 30.5 L MCV 92.1 MCH 30.5 MCHC 33.1 RDW 12.4 Plt Count 218 MPV 10.0 Neut % (Auto) 43.3 Lymph % (Auto) 46.9 [place] % (Auto) 7.1 Eos % (Auto) 1.7 Baso % (Auto) 0.5 Neut # (Auto) 2.77 Lymph # (Auto) 3.0 [place] # (Auto) 0.5 Eos # (Auto) 0.1 Baso # (Auto) 0.0 Nucleated RBC % (auto) 0 Nucleated RBCs # 0.0 Sodium 136 Potassium 3.5 Chloride 101 Carbon Dioxide 24 Anion Gap 14.5 BUN 12 Creatinine 0.6 GFR Calculation 118.2 Glucose 138 H Calculated Osmolality 284 L Calcium 9.3 Total Bilirubin 0.2 AST 14 ALT 12 Alkaline Phosphatase 38 Total Protein 6.5 L Albumin 4.1 Globulin 2.4 Ser , Semi-Qnt 10816.00 Blood Type O Negative Rho(D) Type Negative Antibody Screen Positive Antibody Identification Anti-D Crossmatch See Detail 11/08/20 11/09/20 23:57 02:36 WBC RBC Hgb 8.0 L 6.4 L* Hct 24.1 L 19.7 L* MCV MCH MCHC RDW Plt Count MPV Neut % (Auto) Lymph % (Auto) [place] % (Auto) Eos % (Auto) Baso % (Auto) Neut # (Auto) Lymph # (Auto) [place] # (Auto) Eos # (Auto) Baso # (Auto) Nucleated RBC % (auto) Nucleated RBCs # Sodium Potassium Chloride Carbon Dioxide Anion Gap BUN Creatinine GFR Calculation Glucose Calculated Osmolality Calcium Total Bilirubin AST ALT Alkaline Phosphatase Total Protein Albumin Globulin Ser , Semi-Qnt Blood Type Rho(D) Type Antibody Screen Antibody Identification Crossmatch Cardiac Studies: No Data to Display
--- NOTE | 2020-11-09 03:51 | ANES.PREANE2 ---
Pre-Anesthetic Assessment Pre-Anesthetic Assessment: Height/Weight: Height 1.47 m Weight 54.431 kg Temp Pulse Resp BP Pulse Ox 98.5 F 104 H 18 105/55 100 11/09/20 03:19 11/09/20 03:19 11/09/20 03:19 11/09/20 03:39 11/09/20 03:39 Preop Diagnosis: Incomplete AB Proposed Procedure: Operation Date: 11/09/20 03:45 Proposed Procedures p Dilation And Curettage (D&C)(Not Applicable) - Phani Lopez MD Familial anesthetic complications: None Was Beta Shahram taken within 24 hours: N/A Last intake: Intake Last Liquid Date 11/08/20 Last Liquid Time 22:00 Last Solid Date 11/08/20 Last Solid Time 18:30 Social: Social History: No alcohol and No tobacco Exam: Pre-Anes Outpt Exam: alert, oriented x 3, clear to auscultation bilaterally and regular rate & rhythm Airway: Cervical ROM: WNL MP: 1 Dentition: Full CV/HEM: CV/HEM: Anemia (acute, profound) Anesthetic Plan: ASA status: 1E Anesthesia: General Risk of > 500 ml blood loss (7ml/kg in children): No Other Pertinent Information: receiving 2nd unit prbcs PFSH Anesthesia PFSH: Family History (Updated 11/15/19 @ 18:09 by Alexandra Garcia RN) Father Hypertension Social History (Updated 11/15/19 @ 18:09 by Alexandra Garcia RN) Smoking and tobacco status: never smoked Alcohol intake: never Adopted: No Caregiver/support person: Yes Lives independently: No Household members: spouse and children Housing: House Marital status: Number of children: 3 service: No Current occupational status: unemployed Current occupational exposures/hazards: No Pets and animals: Yes History of recent travel: No Sexually active: Yes Special olimpia needs: No Agree to transfusion: Yes Female Reproductive History: Date of last menstrual period: 07/30/19 : 6 Data Anesthesia CBC & Chem 7: 11/09/20 02:36 11/08/20 22:29 Other Labs: Laboratory Results - last 48 hr 11/08/20 11/08/20 11/08/20 22:29 22:29 22:29 WBC 6.4 RBC 3.31 L Hgb 10.1 L Hct 30.5 L MCV 92.1 MCH 30.5 MCHC 33.1 RDW 12.4 Plt Count 218 MPV 10.0 Neut % (Auto) 43.3 Lymph % (Auto) 46.9 [place] % (Auto) 7.1 Eos % (Auto) 1.7 Baso % (Auto) 0.5 Neut # (Auto) 2.77 Lymph # (Auto) 3.0 [place] # (Auto) 0.5 Eos # (Auto) 0.1 Baso # (Auto) 0.0 Nucleated RBC % (auto) 0 Nucleated RBCs # 0.0 Sodium 136 Potassium 3.5 Chloride 101 Carbon Dioxide 24 Anion Gap 14.5 BUN 12 Creatinine 0.6 GFR Calculation 118.2 Glucose 138 H Calculated Osmolality 284 L Calcium 9.3 Total Bilirubin 0.2 AST 14 ALT 12 Alkaline Phosphatase 38 Total Protein 6.5 L Albumin 4.1 Globulin 2.4 Ser , Semi-Qnt 07127.00 Blood Type O Negative Rho(D) Type Negative Antibody Screen Positive Antibody Identification Anti-D Crossmatch See Detail 11/08/20 11/09/20 23:57 02:36 WBC RBC Hgb 8.0 L 6.4 L* Hct 24.1 L 19.7 L* MCV MCH MCHC RDW Plt Count MPV Neut % (Auto) Lymph % (Auto) [place] % (Auto) Eos % (Auto) Baso % (Auto) Neut # (Auto) Lymph # (Auto) [place] # (Auto) Eos # (Auto) Baso # (Auto) Nucleated RBC % (auto) Nucleated RBCs # Sodium Potassium Chloride Carbon Dioxide Anion Gap BUN Creatinine GFR Calculation Glucose Calculated Osmolality Calcium Total Bilirubin AST ALT Alkaline Phosphatase Total Protein Albumin Globulin Ser , Semi-Qnt Blood Type Rho(D) Type Antibody Screen Antibody Identification Crossmatch Cardiac Studies: No Data to Display
--- NOTE | 2020-11-09 04:34 | PM.OP ---
Operative Report Date of procedure: November 09, 2020 Pre-op Diagnosis: Incomplete AB Post-op diagnosis: same Post-op Findings: Products of conception Procedure Done: Suction dilation and curettage Specimens removed/disposition: Product of conception Surgeon: Phani Lopez MD Anesthesia: General Estimated blood loss (mL): 200 IV fluids (mL): 1,000 Urine output (mL): 100 Complications: none Findings: vaginal vault full of clotted blood, approximately 500 ml Condition: stable Disposition: PACU Brief History: 29 y/o female with unknown LMP approximately 7 weeks came to ER with active vaginal bleeding and diagnosed with incomplete . She was given 2 unit of PRBC in the ER. Procedure: After informed consent, the patient was taken to the Operating Room where general anesthesia was administered. The patient was examined under anesthesia and found to have a normal uterus with normal adnexa. She was placed in the dorsal lithotomy position and prepped and draped in sterile fashion. A sterile weighted speculum was placed in the patient?s vagina. A single-tooth tenaculum was then applied to the cervix. The uterus was then gently sounded to 10 cm and a suction curette was advanced gently to the uterine fundus and product of conception emptied. A sharp curettage was then performed until a gritty texture was noted. There was minimal bleeding noted and the tenaculum was removed with good hemostasis noted. The patient tolerated the procedure well. The patient was taken to the recovery area in stable condition.
--- NOTE | 2020-11-09 04:48 | PC.NURSE ---
Report called to this RN by MCKINLEY Allen in PACU
--- NOTE | 2020-11-09 04:55 | PC.NURSE ---
patient arrived to OB11 at this time in stable condition via gurney.
--- NOTE | 2020-11-09 04:58 | PC.NURSE ---
Dr. Lopez at bedside, bleeding assessed. Verbal order received to give TXA 1000mg IV now.
--- NOTE | 2020-11-09 05:11 | SUR.OPER ---
0450 pt in stable condition and transferred to OB dept with OR nurse, Radha SEN at bedside.
--- NOTE | 2020-11-09 05:30 | PC.NURSE ---
RN at bedside, pericare performed and pad changed at this time. pad left in shower if needed to weigh.
[2020-11-09] MEDS: dextrose 5%-lactated ringers 1,000 ML 125 ML IV (05:32)
[2020-11-09] MEDS: ketorolac 30 mg/mL INJ IVP (05:33)
--- NOTE | 2020-11-09 07:12 | PC.NURSE ---
Dr. Lopez called unit, updated on vitals, bleeding, medications given and blood products given. MD orders to continue with current POC.
[2020-11-09 07:34] LABS: Hematocrit 26.5 % (37.0-47.0); Mean Corpuscular HGB Conc 29.8 g/dL (30.0-36.0); Mean Corpuscular Hemoglobin 29.9 pg (28.0-34.0); Mean Corpuscular Volume 100.4 fL (81-99); Mean Platelet Volume 9.9 fL (7.4-10.4); Platelet Count 111 10^3/cmm (130-400); Red Blood Count 2.64 10^6/uL (4.1-5.3); Red Cell Distribution Width 13.5 % (12.1-15.1); White Blood Count 7.5 10^3/uL (4.0-10.0)
--- NOTE | 2020-11-09 07:44 | PC.NURSE ---
PATIENTS CAME OUT AND I ASKED HIM WHAT HE NEEDED AND HE SAID THAT HE JUST WAS GOING TO TAKE A WALK, TOLD HIM THAT WITH COVID RESTRICTIONS THAT HE HAD TO HAVE A MASK ON AND THAT HE HAD TO STAY IN HIS ROOM, EXPLAINED TO HIM THAT IF HE LEFT DEPARTMENT THAT HE COULD NOT RETURN AND HE ASKED ABOUT VISITORS AND I TOLD HIM THAT WE COULDN'T HAVE VISITORS AT THIS TIME BECAUSE OF THE COVID RESTRICTIONS.
[2020-11-09 07:59] LABS: Hemoglobin 7.9 g/dL (11.5-15.3)
--- NOTE | 2020-11-09 08:38 | PC.NURSE ---
PT UP TO BATHROOM AGAIN AND DID GREAT. VOIDED 1000MLS, PT DENIES ANY DIZZNESS OR OTHER ISSUES. SHE WANTED TO KNOW IF SHE COULD BE UP TO BATHROOM WITH HER 'S HELP, TOLD HER THAT WAS FINE BUT THAT I NEEDED TO BE CALLED BEFORE SHE GETS UP IF SHE WAS DIZZY OR ANY OTHER ISSUES AND THAT I STILL NEEDED TO MEASURE HER URINE AND MONITOR HER BLEEDING. PT VOICES UNDERSTANDING.
--- NOTE | 2020-11-09 08:41 | PC.NURSE ---
0815 BLOOD COMPLETE. IV LINE DISCONTINUED BUT IV REMAINS IN PLACE. INFORMED PATIENT AND HER THAT WE WOULD REDRAW LAB AT 1215 AND SEE HOW IT WAS AND THEN I WOULD NOTIFY DR. CHOE AND THEN WE WOULD GO FROM THERE. BOTH VOICE UNDERSTANDING.
[2020-11-09] MEDS: ferrous sulfate EC 325 mg Tablet PO (09:26)
[2020-11-09] MEDS: docusate sodium 100 mg Capsule PO (09:26)
[2020-11-09] MEDS: ibuprofen 800 mg tablet PO (09:26)
[2020-11-09] MEDS: prenatal vitamin Capsule 1 CAP PO (09:27)
--- NOTE | 2020-11-09 09:45 | PC.NURSE ---
PATIENT WAS RESTING WITH EYES COVERED.
[2020-11-09 12:39] LABS: Hematocrit 24.2 % (37.0-47.0); Hemoglobin 8.2 g/dL (11.5-15.3)
--- NOTE | 2020-11-09 12:56 | PC.NURSE ---
1215 BLOOD WORK DRAWN OFF IV SITE IN LEFT AC SPACE, 10MLS OF BLOOD DRAWN OFF SITE PRIOR TO GETTING LABS. IV SITE FLUSHED WITH 10MLS FLUSH.
--- NOTE | 2020-11-09 13:02 | P.SS_ITS ---
Short Stay Summary Providers Date of Admit/Discharge: 11/09/20 Attending Provider: Phani Choe MD Primary Care Provider: Phani Choe MD Chief Complaint: vaginal bleeding HPI History of Present Illness Davina Lara is a 29 year old female G6, P3 with unknown LMP with an estimated gestational age of approximately 7 weeks came to the emergency room with profuse vaginal bleeding. Received 2 units of packed red blood cells in the emergency room diagnosed with incomplete AB. RhoGam was given. Review of Systems Const: Denies: fever(s), chills, body aches or change in appetite Eyes: Denies: blurry vision or eye discomfort ENMT: Denies: throat pain or dental pain Card: Denies: chest pain Resp: Denies: dyspnea GI: Reports: nausea and vomiting : Reports: vaginal bleeding (spotting); Denies: flank pain or pelvic pain Musc: Denies: neck pain or back pain Skin/Breast: Denies: rash Neuro: Denies: headache(s) Psych: Denies: depression Jovanny/Lymph: Denies: easy bruising All/Imm: Denies: urticaria Home Meds/Allergies Home Medications and Allergies Allergies Allergy/AdvReac Type Severity Reaction Status Date / Time No Known Allergies Allergy Verified 11/15/19 10:20 PFSH Acute PFSH: Family History (Updated 11/15/19 @ 18:09 by Alexandra Garcia RN) Father Hypertension Social History (Updated 11/15/19 @ 18:09 by Alexandra Garcia RN) Smoking and tobacco status: never smoked Alcohol intake: never Adopted: No Caregiver/support person: Yes Lives independently: No Household members: spouse and children Housing: House Marital status: Number of children: 3 service: No Current occupational status: unemployed Current occupational exposures/hazards: No Pets and animals: Yes History of recent travel: No Sexually active: Yes Special olimpia needs: No Agree to transfusion: Yes Female Reproductive History: Date of last menstrual period: 07/30/19 : 6 Vitals/I&O/Wt Last Vital Signs Temp 98.8 F 11/09/20 11:15 Pulse 111 H 11/09/20 11:15 Resp 18 11/09/20 11:15 BP 92/51 11/09/20 11:15 Pulse Ox 99 11/09/20 11:15 11/08/20 11/09/20 11/09/20 22:59 06:59 14:59 Intake Total 2059 / 0 1110 / 1110 Output Total 300 / 300 3400 / 3400 Balance 1760 / 1760 -2290 / -2290 Weight last 48 hrs Weight 54.431 kg Physical Exam Narrative: EXAM NARRATIVE: GA: Alert and oriented ?3. HEENT: WNL. Heart: Regular rate and rhythm. Lungs: Clear to auscultation bilaterally. Abdomen: Bowel sounds present, nontender, minimal tenderness, incision clean and dry, no redness, pain or edema. 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 Extremities: No edema, no cyanosis, no calves pain. Hospital Course Admission Diagnoses Incomplete Hospital Course Patient taken urgently to the emergency room for a suction dilation and curettage. Intra-Op she was given oxytocin, and Methergine. She received an additional unit of red blood cells postop and 1 unit of fresh frozen plasma. Postop observation was uneventful. She is ambulating without difficulty. Tolerating diet well. SSS Data Data Completed and Pending: Completed Studies During Hospitalization Category Date Time Status US OB <= 14 weeks fetus 09365 Urgen t Ultrasound 11/08/20 22:19 Completed Pending at discharge Category Date Time Status ABO/Rh Type Stat Lab 11/08/20 22:29 Results Antibody Identifi cation Stat Lab 11/08/20 22:29 Results Complete Blood Co unt w/Auto AM LABS Lab 11/10/20 04:00 Ordered Complete Crossmat ch Stat Lab 11/08/20 22:29 Results Frozen Plasma FZ <24 1st Cont Routi ne Lab 11/09/20 05:05 Results Hemoglobin and He matocrit Routine Lab 11/09/20 05:05 Ordered Leukocyte Reduced RBC Stat Lab 11/09/20 00:24 Results Type and Screen S tat Lab 11/08/20 22:29 Results Pathology: Surgic al [PTH] Routine Pth 11/09/20 04:41 Received Diagnoses at Discharge Discharge Diagnosis (1) Incomplete : Status: Acute Discharge Plan Discharge Patient Disposition: Home Condition: Stable Prescriptions: New ibuprofen 800 mg tablet 800 mg PO TID PRN (Reason: pain) Qty: 60 RF: 0 acetaminophen 325 mg capsule 325 mg PO Q4H PRN (Reason: fever or pain) Qty: 60 RF: 0 Continued docusate sodium 100 mg Capsule 100 mg PO BID Qty: 60 RF: 0 -U 106.5-1 mg Capsule 1 cap PO DAILY Qty: 60 RF: 0 Iron (ferrous sulfate) 325 mg (65 mg iron) tablet 325 mg PO BID Qty: 60 RF: 0 Discharge Orders: Discharge Order (Routine); Ordered 11/09/20 Ordered By: Phani Choe Referrals: Phani Choe MD [Primary Care Provider] - 2 weeks (FOLLOW UP WITH DR. CHOE 11/23/2020 AT 1245.) Discharge Diet: Regular Discharge Activity: Increase activity as tolerated Patient Instructions: Spontaneous Miscarriage (DC), Dilation and Curettage (DC) Activity Restrictions/Additional Instructions: 1. Please call [facility] on next working day to make your post-operative appointment in 2 weeks. 2. Please stay home until you come back to the clinic on first post-operative check up. 3. Please follow instructions on your medications CAREFULLY. 4. If you have abdominal incision, do not cover it unless dressing is necessary because of drainage. OK to shower, but avoid bath. Leave steri-strips until they fall off. If they are still on one week after surgery, you may remove them. 5. If you had vaginal surgery, your doctor may instruct you to take SITZ bath. 6. Yellow, blood tinged odorous vaginal discharge is usually normal after hysterectomy or vaginal surgeries. 7. No sexual intercourse, tampons, or douches until you are completely released from the post-operative care. 8. Avoid constipation by eating right and maybe using some Metamucil or Milk of Magnesia. 9. All prescription refills are given during the working hours. Please do no wait till it runs out. Call the clinic at [phone] before your medication runs out. The clinic will get in touch with your doctor to prescribe medications if necessary. 10. Please remain within 40 mile radius from our hospital because emergencies do happen now and then during the post-operative period. 11. If you have stairs at home, take one step at a time slowly and minimize the number of trips. It helps to stay in one floor for the next few days. No lifting except what you can lift by one hand until you are released from the post-operative care. 12. Driving is discouraged until you are well healed. It may be 3-4 weeks before you feel strong enough to drive. You should be able to turn and look through the rear window without pain and you should be able to push the brake pedal very hard without pain before you drive. No fast rules, but SAFETY should be your primary concern. DO NOT drive if you are on sedating medications such as narcotics. 13. Call the clinic (during working hours) to make urgent appointment or go to the Emergency room, if any of the following occurs: i. Vaginal bleeding becomes heavy, more than a period. ii. Incision becomes red and sore, or drains pus. iii. Your temperature is over 100.4 or you have chill. iv. IV site becomes red and swollen (a little ``knot?? is usually OK) v. Persistent nausea and vomiting vi. Persistent constipation or diarrhea vii. Rash or allergic reaction to medications. 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
== END 2020-11-09 14:05 | disposition home or self-care (01) ==
LOC: ER 11-09 00:31 → OBGYN 11-09 00:56 → OR 11-09 03:25 → OBGYN 11-09 05:59
PROVIDERS: Admitting Provider Obstetrics & Gynecology; Emergency Provider Emergency Medicine; PCP Obstetrics & Gynecology; Visit Provider Obstetrics & Gynecology
PROC: (CPT 58120; principal; 2020-11-09 03:45)
DX: O03.4 Incomplete spontaneous abortion without complication (principal); Z3A.01 Less than 8 weeks gestation of pregnancy
CPT/HCPCS: 59812; 12345; 36415; 36430; 76801; 80053; 80500; 84702; 85014; 85018; 85025; 85027; 86850; 86870; 86900; 86920; 86927; 88305; 99283; E0352; G0378; J0330; J0610; J1100; J1885; J2250; J2405; J2704; J3010; J7030; P9016; P9017; P9047

== ENCOUNTER 2020-12-13 22:45 | Observation (INO) | payer SELFPAY ==
[2020-12-13 22:46] VITALS: BP 82/45; PULSE 69; RESP 18; TEMP 36.6; O2SAT 100; BMI 28.2
--- NOTE | 2020-12-13 22:48 | CTR_ITS ---
PROCEDURE INFORMATION: Exam: CT Abdomen And Pelvis With Contrast Exam date and time: 12/13/2020 10:53 PM Age: 30 years old Clinical indication: Abdominal pain; Generalized; Additional info: Abd pain TECHNIQUE: Imaging protocol: Computed tomography of the abdomen and pelvis with contrast. Radiation optimization: All CT scans at this facility use at least one of these dose optimization techniques: automated exposure control; mA and/or kV adjustment per patient size (includes targeted exams where dose is matched to clinical indication); or iterative reconstruction. Contrast material: OMNI 300; Contrast volume: 95 ml; Contrast route: INTRAVENOUS (IV); COMPARISON: US OB <= 14 weeks fetus [id number] 11/08/2020 11:35 PM RADIATION DOSE METRICS: Total DLP (mGy-cm): 460.9 FINDINGS: Lungs: Lung bases are clear. Liver: The liver is normal. Gallbladder and bile ducts: The gallbladder is normal. There is no biliary dilation. Pancreas: The pancreas is unremarkable. Spleen: The spleen is unremarkable. Adrenal glands: The adrenal glands are unremarkable. Kidneys and ureters: The kidneys are unremarkable. No hydronephrosis or stones. No ureteral dilation. Stomach and bowel: The stomach is unremarkable. The small bowel is nondilated. The colon is unremarkable. Appendix: appendix is not visible. Intraperitoneal space: Moderate volume hemorrhagic ascites. There is no intraperitoneal free air. Vasculature: The aorta is unremarkable. There is no aneurysm. The portal, splenic and superior mesenteric veins are patent. Lymph nodes: There is no lymphadenopathy in the retroperitoneum, mesentery, pelvis or inguinal regions. Urinary bladder: The urinary bladder is unremarkable. Reproductive: There is a mass measuring 5.9 x 4.8 cm demonstrating marked peripheral hyperemia and heterogeneously hypodense internal contents involving the lower uterine segment on the left. The ovaries are not seen. The right adnexa is unremarkable. Bones/joints: Bones are unremarkable. Soft tissues: Unremarkable. CT/CT abdomen pelvis w con* [id number] IMPRESSION: 1. Peripherally hyperemic left adnexal mass with moderate volume hemorrhagic ascites. The origin of the mass is unclear, but it appears to involve the lower uterine segment or upper cervix and is located in the left adnexal region. This could be a myometrial, endometrial or adnexal mass. Ruptured ectopic is not excluded. Correlate with beta hCG. 2. Moderate volume hemorrhagic ascites. 3. No active contrast extravasation. Radiation Dose CTDIVOL = (mGy): DLP = 460.9 (mGy-cm)
--- NOTE | 2020-12-13 22:49 | ECG_ITS ---
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 Measurements Intervals [place] Rate: 69 P: 70 KS: 112 QRS: 96 QRSD: 79 T: 64 QT: 438 QTc: 471 Interpretive Statements SINUS RHYTHM WITH SHORT [place] INTERVAL BORDERLINE RIGHT AXIS DEVIATION [QRS AXIS > 90] No previous ECG available for comparison Electronically Signed On 12-15-2020 19:13:37 INTERNAL COMBUSTION ENGINE ASSEMBLER by Sergey Lehman M.D. [email or web address]/[id number] f
[2020-12-13 22:53] VITALS: BP 82/45; PULSE 73; RESP 21; O2SAT 100
--- NOTE | 2020-12-13 22:58 | W.ED.ABDPA2 ---
HPI - Abdominal Pain General: Chief Complaint: Abdominal Pain Stated Complaint: syncope and abd pain Time Seen by Provider: 12/13/20 22:48 Source: patient Mode of arrival: ambulatory Limitations: no limitations History of Present Illness: HPI narrative: 30-year-old female who had a D&C a month ago. States she did start her menstruation again started having severe abdominal pain roughly 2 hours ago. States it was sharp and in her lower abdomen and had a syncopal event. He mistakenly first arrived her blood pressure was in the 70s and now is normal. She denies any increased vaginal bleeding at this time. She states she did have anemia after her D&C. She denies any vomiting or diarrhea. Denies any chest pain. MD elicited complaint: abdominal pain Associated Symptoms: Reports syncope; Denies chills, dysuria and fever(s) Related Data: Date of Last Menstrual Period: 12/06/20 Review of Systems Const: Denies: fever(s), chills, body aches or change in appetite Eyes: Denies: blurry vision or eye discomfort ENMT: Denies: throat pain or dental pain Card: Reports: syncope Resp: Denies: dyspnea GI: Reports: abdominal pain : Denies: dysuria Musc: Denies: neck pain or back pain Skin/Breast: Denies: rash Neuro: Denies: headache(s) Psych: Denies: depression Jovanny/Lymph: Denies: easy bruising All/Imm: Denies: urticaria PFSH ED PFSH: Family History Father Hypertension Mother Clotting disorder Grandmother Colon cancer paternal, age onset unknown Denies family history of Ovarian cancer Diabetes Heart disease Hyperlipidemia Breast cancer Anesthesia complication Bleeding disorder Uterine cancer Thyroid condition Stroke Social History Smoking and tobacco status: never smoked Alcohol intake: never Female Reproductive History: Date of last menstrual period: 12/06/20 : 6 Physical Exam Const: COMMON NORMALS: no acute distress, patient oriented x3 and healthy appearing HENMT: COMMON NORMALS: normocephalic and atraumatic HEAD & SCALP: normocephalic and atraumatic Eye: COMMON NORMALS: Equal, round and reactive pupils present and EOMs intact bilaterally PUPIL: Yes Equal, round and reactive pupils present Neck/C-Spine: COMMON NORMALS: full ROM and supple Chest: COMMONS NORMALS: normal inspection of the chest and normal palpation of entire chest wall Resp: COMMON NORMALS: normal respiratory effort, No retractions, No use of accessory muscles and clear to auscultation bilaterally AUSCULTATION: clear to auscultation bilaterally Cardio: COMMON NORMALS: regular rate, regular rhythm and No murmurs present (Cardio) RATE: regular rate RHYTHM: regular rhythm GI: COMMON NORMALS: Normal to inspection, nondistended, normoactive bowel sounds present, Soft to palpation and no masses PALPATION: Yes Soft to palpation and Yes Tenderness to palpation present (GI) Details: RLQ Extremity: COMMON NORMALS: normal to inspection and full ROM Neuro: COMMON NORMALS: patient oriented x3, moves all extremities and no focal motor deficits Psych: COMMON NORMALS: mental status grossly normal, Normal thought process present and cooperative THOUGHT PROCESS: Normal thought process present Skin: COMMON NORMALS: no rashes or lesions noted and no wounds GENERAL SKIN EXAM: no rashes or lesions noted Course Vital Signs: Vital signs: Vital Signs Temperature 97.8 F 12/13/20 22:46 Pulse Rate 85 12/14/20 00:30 Respiratory Rate 18 12/14/20 00:30 Blood Pressure 90/47 12/14/20 00:30 Pulse Oximetry 100 12/14/20 00:30 MDM - Abdominal Pain MDM Narrative: Medical decision making narrative: Davina presents here with sudden onset abdominal pain and then had a syncopal event. Patient serum qualitative here is positive and CT scan is consistent with a likely ruptured ectopic . Patient did have a recent D&C her quantitative level is quite low and this is likely an new there with a ruptured ectopic. I spoke to OB on-call who is coming and will take her to the operating room. Will give patient RhoGam and transfuse as well. Patient has been stable here. Lab Data: Labs: Lab Results 12/13/20 12/13/20 12/13/20 Range/Units 22:30 22:30 22:30 WBC 5.9 (4.0-10.0) 10^3/ uL RBC 3.29 L (4.1-5.3) 10^6/u L Hgb 10.3 L (11.5-15.3) g/dL Hct 32.0 L (37.0-47.0) % MCV 97.3 (81-99) fL MCH 31.3 (28.0-34.0) pg MCHC 32.2 (30.0-36.0) g/dL RDW 13.4 (12.1-15.1) % Plt Count 220 (130-400) 10^3/c mm MPV 10.2 (7.4-10.4) fL Neut % (Auto) 41.5 % Lymph % (Auto) 50.4 % [place] % (Auto) 4.9 % Eos % (Auto) 2.4 % Baso % (Auto) 0.3 % Neut # (Auto) 2.44 (1.8-7.7) 10^3/u L Lymph # (Auto) 3.0 (0.8-4.8) 10^3/u L [place] # (Auto) 0.3 (0.2-0.9) 10^3/u L Eos # (Auto) 0.1 (0.0-0.8) 10^3/u L Baso # (Auto) 0.0 (0.0-0.1) 10^3/u L Nucleated RBC % (a uto) 0 % Nucleated RBCs # 0.0 /100WBC Sodium 140 (136-145) mmol/L Potassium 3.5 (3.5-5.1) mmol/L Chloride 104 (98-107) mmol/L Carbon Dioxide 26 (22-29) mmol/L Anion Gap 13.5 (5-19) BUN 18 (6-20) mg/dL Creatinine 0.7 (0.5-0.9) mg/dL GFR Calculation 98.3 (90-130) mL/min Glucose 135 H (65-115) mg/dL Calculated Osmolal ity 294 (285-295) mOsm/k g Lactic Acid (0.5-2.2) mmol/L Calcium 9.0 (8.5-10.5) mg/dL Total Bilirubin 0.2 (0.15-1.2) mg/dL AST 18 (0-32) U/L ALT 11 (0-33) U/L Alkaline Phosphata se 43 (35-105) IU/L Total Protein 6.4 L (6.6-8.7) g/dL Albumin 4.1 (3.5-5.2) g/dL Globulin 2.3 (1.3-4.6) g/dL Lipase 35 (13-60) U/L HCG, Qual (Negative) Ser , [place] i-Qnt 574.10 mIU/mL 12/13/20 12/13/20 12/14/20 Range/Units 22:30 22:57 00:05 WBC (4.0-10.0) 10^3/ uL RBC (4.1-5.3) 10^6/u L Hgb 7.8 L (11.5-15.3) g/dL Hct 23.9 L (37.0-47.0) % MCV (81-99) fL MCH (28.0-34.0) pg MCHC (30.0-36.0) g/dL RDW (12.1-15.1) % Plt Count (130-400) 10^3/c mm MPV (7.4-10.4) fL Neut % (Auto) % Lymph % (Auto) % [place] % (Auto) % Eos % (Auto) % Baso % (Auto) % Neut # (Auto) (1.8-7.7) 10^3/u L Lymph # (Auto) (0.8-4.8) 10^3/u L [place] # (Auto) (0.2-0.9) 10^3/u L Eos # (Auto) (0.0-0.8) 10^3/u L Baso # (Auto) (0.0-0.1) 10^3/u L Nucleated RBC % (a uto) % Nucleated RBCs # /100WBC Sodium (136-145) mmol/L Potassium (3.5-5.1) mmol/L Chloride (98-107) mmol/L Carbon Dioxide (22-29) mmol/L Anion Gap (5-19) BUN (6-20) mg/dL Creatinine (0.5-0.9) mg/dL GFR Calculation (90-130) mL/min Glucose (65-115) mg/dL Calculated Osmolal ity (285-295) mOsm/k g Lactic Acid 1.5 (0.5-2.2) mmol/L Calcium (8.5-10.5) mg/dL Total Bilirubin (0.15-1.2) mg/dL AST (0-32) U/L ALT (0-33) U/L Alkaline Phosphata se (35-105) IU/L Total Protein (6.6-8.7) g/dL Albumin (3.5-5.2) g/dL Globulin (1.3-4.6) g/dL Lipase (13-60) U/L HCG, Qual Positive H (Negative) Ser , [place] i-Qnt mIU/mL Imaging Data ^: CT Abd/Pel: Radiologist's impression: [address] [place] [address] CT Scan Report Signed with Addenda Patient: Davina Lara Unit #: [id number] : 1990 Age/Sex: 30 / F ADM Date: 12/13/20 Loc: ER Room/Bed: Attending Dr: Ordering Provider/Ordering MD: Charmaine Hoover MD Date of Service: 12/13/20 Procedure(s): CT abdomen pelvis w con* [id number] Accession Number(s): [id number] Report Number: [id number]/CT abdomen pelvis w con* [id number] THIS REPORT CONTAINS FINDINGS THAT MAY BE CRITICAL TO PATIENT CARE. The findings were verbally communicated via telephone conference with charmaine Hoover at 12:01 AM RESTAURANT INSPECTOR on 12/14/2020. The findings were acknowledged and understood. Radiation Dose CTDIVOL = (mGy): DLP = 460.9 (mGy-cm) Addendum Dictated By: Loco Steiner MD Addendum Signed By: Loco Steiner MD Signed Date/Time: 0003 Addendum Cosigned By: PROCEDURE INFORMATION: Exam: CT Abdomen And Pelvis With Contrast Exam date and time: 12/13/2020 10:53 PM Age: 30 years old Clinical indication: Abdominal pain; Generalized; Additional info: Abd pain TECHNIQUE: Imaging protocol: Computed tomography of the abdomen and pelvis with contrast. Radiation optimization: All CT scans at this facility use at least one of these dose optimization techniques: automated exposure control; mA and/or kV adjustment per patient size (includes targeted exams where dose is matched to clinical indication); or iterative reconstruction. Contrast material: OMNI 300; Contrast volume: 95 ml; Contrast route: INTRAVENOUS (IV); COMPARISON: US OB <= 14 weeks fetus [id number] 11/08/2020 11:35 PM RADIATION DOSE METRICS: Total DLP (mGy-cm): 460.9 FINDINGS: Lungs: Lung bases are clear. Liver: The liver is normal. Gallbladder and bile ducts: The gallbladder is normal. There is no biliary dilation. Pancreas: The pancreas is unremarkable. Spleen: The spleen is unremarkable. Adrenal glands: The adrenal glands are unremarkable. Kidneys and ureters: The kidneys are unremarkable. No hydronephrosis or stones. No ureteral dilation. Stomach and bowel: The stomach is unremarkable. The small bowel is nondilated. The colon is unremarkable. Appendix: appendix is not visible. Intraperitoneal space: Moderate volume hemorrhagic ascites. There is no intraperitoneal free air. Vasculature: The aorta is unremarkable. There is no aneurysm. The portal, splenic and superior mesenteric veins are patent. Lymph nodes: There is no lymphadenopathy in the retroperitoneum, mesentery, pelvis or inguinal regions. Urinary bladder: The urinary bladder is unremarkable. Reproductive: There is a mass measuring 5.9 x 4.8 cm demonstrating marked peripheral hyperemia and heterogeneously hypodense internal contents involving the lower uterine segment on the left. The ovaries are not seen. The right adnexa is unremarkable. Bones/joints: Bones are unremarkable. Soft tissues: Unremarkable. CT/CT abdomen pelvis w con* [id number] IMPRESSION: 1. Peripherally hyperemic left adnexal mass with moderate volume hemorrhagic ascites. The origin of the mass is unclear, but it appears to involve the lower uterine segment or upper cervix and is located in the left adnexal region. This could be a myometrial, endometrial or adnexal mass. Ruptured ectopic is not excluded. Correlate with beta hCG. 2. Moderate volume hemorrhagic ascites. 3. No active contrast extravasation. EKG Data ^: EKG 1: Attestation: I personally reviewed and interpreted this EKG as follows: EKG interpretation date: 12/13/20 EKG interpretation time: 22:49 Interpretation: nsr hr [address] or t wave abnormalities qrs 79 qtc 457 Critical Care Time Critical Care Time: Critical Care Time: Yes Total Critical Care Time: 35 Attestation: This case had a high probability of a clinically significant, sudden, or life threatening deterioration of this patient's condition which required my full and direct attention, intervention and personal management. Discharge Plan Discharge Patient Disposition: Admitted As Inpatient Clinical Impression: Ruptured ectopic Condition: Stable Coding Level of Care Code ED Associate Professor Of Criminal Justice for Ch[facility] Fwd Exam Comprehensive
[2020-12-13 23:04] LABS: Basophils % 0.3 %; Eosinophils # 0.1 10^3/uL (0.0-0.8); Eosinophils % 2.4 %; Hemoglobin 10.3 g/dL (11.5-15.3); Lymphocytes % 50.4 %; Mean Corpuscular HGB Conc 32.2 g/dL (30.0-36.0); Mean Corpuscular Hemoglobin 31.3 pg (28.0-34.0); Mean Corpuscular Volume 97.3 fL (81-99); Mean Platelet Volume 10.2 fL (7.4-10.4); Monocytes # 0.3 10^3/uL (0.2-0.9); Monocytes % 4.9 %; Neutrophils # 2.44 10^3/uL (1.8-7.7); Neutrophils % 41.5 %; Nucleated Red Blood Cells % 0 %; Platelet Count 220 10^3/cmm (130-400); Red Blood Count 3.29 10^6/uL (4.1-5.3); Red Cell Distribution Width 13.4 % (12.1-15.1); White Blood Count 5.9 10^3/uL (4.0-10.0)
[2020-12-13 23:07] VITALS: BP 91/42; PULSE 78; RESP 18; O2SAT 100
[2020-12-13] MEDS: lactated ringers 1,000 ML 999 ML IV (23:19)
[2020-12-13 23:22] VITALS: BP 101/52; PULSE 68; RESP 16; O2SAT 100
[2020-12-13 23:22] LABS: Alanine Aminotransferase 11 U/L (0-33); Albumin Level 4.1 g/dL (3.5-5.2); Alkaline Phosphatase 43 IU/L (35-105); Aspartate Amino Transferase 18 U/L (0-32); Blood Urea Nitrogen 18 mg/dL (6-20); Carbon Dioxide 26 mmol/L (22-29); Chloride 104 mmol/L (98-107); Globulin 2.3 g/dL (1.3-4.6); Glomerular Filtration Rate 98.3 mL/min (90-130); Glucose 135 mg/dL (65-115); Lipase 35 U/L (13-60); Osmolality Calculated 294 mOsm/kg (285-295); Sodium 140 mmol/L (136-145); Total Bilirubin 0.2 mg/dL (0.15-1.2); Total Protein 6.4 g/dL (6.6-8.7)
[2020-12-13 23:29] LABS: Anion Gap 13.5 (5-19); Potassium 3.5 mmol/L (3.5-5.1)
[2020-12-13 23:30] VITALS: PULSE 97; RESP 16; O2SAT 100
[2020-12-13] MEDS: iohexol 300 mg/mL 100 mL Btl IV (23:42)
[2020-12-13 23:45] VITALS: BP 87/59; PULSE 93; RESP 16; O2SAT 100
[2020-12-14] VITALS (20 sets, daily range): BP systolic 80–100; BP diastolic 5–58; PULSE 78–116; RESP 14–20; TEMP 36.1–37.2; O2SAT 98–100
[2020-12-14 00:02] LABS: Lactic Sepsis W/Reflex 1.5 mmol/L (0.5-2.2)
[2020-12-14 00:04] LABS: HCG, Serum Qual Positive (Negative)
[2020-12-14] MEDS: sodium chloride 0.9% 1,000 ML 999 ML IV (00:13)
[2020-12-14 00:18] LABS: Hematocrit 23.9 % (37.0-47.0); Hemoglobin 7.8 g/dL (11.5-15.3)
--- NOTE | 2020-12-14 00:54 | P.HP_ITS ---
Providers/Chief Complaint Admitting Physician: Dorothy Sim MD Primary Care Provider: Phani Lopez MD Chief Complaint: syncope and abd pain History of Present Illness Davina Lara is a 30 year old female who presents for pain and syncope at home this evening. She reports that about a month ago, she had a miscarriage and had a D&C. Tonight, she was at home and had sudden onset of pain and passed out. She was found to have a ruptured ectopic on the left and an HCG of 574. She has no significant medical history but she has a history of 3 . Review of Systems General: Reports: 10 or more systems reviewed and unremarkable except in HPI and below Medications/Allergies Home Medications Medication Instructions Recorded Confirmed Last Taken Type Iron (ferrous sulfate) 325 mg PO BID #60 tab 11/15/19 11/23/20 Unknown Rx -U 1 cap PO DAILY #60 cap 11/15/19 11/23/20 Unknown Rx docusate sodium 100 mg PO BID #60 cap 11/15/19 11/23/20 Unknown Rx ibuprofen 800 mg tablet 800 mg PO Q8H PRN #60 tab 12/03/20 Unknown Rx Allergies Allergy/AdvReac Type Severity Reaction Status Date / Time No Known Allergies Allergy Verified 11/23/20 12:42 PFSH Acute PFSH: Family History Father Hypertension Mother Clotting disorder Grandmother Colon cancer paternal, age onset unknown Denies family history of Ovarian cancer Diabetes Heart disease Hyperlipidemia Breast cancer Anesthesia complication Bleeding disorder Uterine cancer Thyroid condition Stroke Social History Smoking and tobacco status: never smoked Alcohol intake: never Female Reproductive History: Date of last menstrual period: 12/06/20 : 6 Vitals/I&O/Wt Last Vital Signs Temp 97.8 F 12/13/20 22:46 Pulse 85 12/14/20 00:30 Resp 18 12/14/20 00:30 BP 90/47 12/14/20 00:30 Pulse Ox 100 12/14/20 00:30 12/13/20 12/13/20 12/14/20 14:59 22:59 06:59 Intake Total 1000 / 1000 Balance 1000 / 1000 Weight last 48 hrs Weight 135 lb Physical Exam Const: COMMON NORMALS: average body habitus, patient oriented x3, no limitations, healthy appearing, alert and well nourished GENERAL APPEARANCE: cooperative, well kempt, well developed and frail appearing; not comfortable ORIENTATION/CONSCIOUSNESS: Yes awake, Yes oriented to person, Yes oriented to place and Yes oriented to time Resp: COMMON NORMALS: normal respiratory effort, No retractions, No use of accessory muscles and clear to auscultation bilaterally EFFORT & INSPECTION: Yes able to speak in complete sentences Cardio: COMMON NORMALS: no JVD, regular rate and regular rhythm RATE: regular rate RHYTHM: regular rhythm GI: PALPATION: Yes Firmness to palpation present (GI), Yes Tenderness to palpation present (GI) and Yes Guarding due to palpation present (GI) RECTAL EXAM: deferred Extremity: COMMON NORMALS: normal to inspection and full ROM Psych: COMMON NORMALS: mental status grossly normal, Normal thought process present, cooperative and normal affect ATTITUDE: Yes calm SPEECH: Yes normal speech Skin: COMMON NORMALS: no rashes or lesions noted and no wounds Data : 12/14/20 00:05 12/13/20 22:30 A&P Assessment and plan (1) Ruptured ectopic : Will take to surgery for mini laparotomy and removal of ruptured fallopian tube as well as evacuation of blood in abdomen Status: Acute Attestations Medical Necessity Statement*: patient will be admitted for observation and likely Time Spent in Patient Care: 16 - 35 minutes Coding Level of Care Code Acute Equipment Maintenance Supervisor for Jamal Fwmirza Diagnoses Ruptured ectopic O00.90
[2020-12-14] MEDS: ondansetron 2 mg/ML SDV 2 mL 4 MG IVP (00:56)
[2020-12-14] MEDS: morphine 4 mg/mL SDV 1 mL IVP ×3 (00:56→10:07)
[2020-12-14] MEDS: ceFAZolin 1,000 mg SDV 2000 MG IVP (01:30)
--- NOTE | 2020-12-14 01:42 | P.ANESASSM_ITS ---
Pre-Anesthetic Assessment Pre-Anesthetic Assessment: Height/Weight: Height 1.47 m Weight 61.235 kg Temp Pulse Resp BP Pulse Ox 96.9 F L 91 17 90/47 100 12/14/20 01:20 12/14/20 01:20 12/14/20 01:20 12/14/20 01:20 12/14/20 01:20 Preop Diagnosis: Incomplete AB Proposed Procedure: Operation Date: 12/14/20 01:00 Proposed Procedures p Ectopic Open(Not Applicable) - Dorothy Sim MD Was Beta Shahram taken within 24 hours: N/A Last intake: Intake Last Liquid Date 12/13/20 Last Liquid Time 22:30 Last Solid Date 12/13/20 Last Solid Time 18:30 Social: Social History: No alcohol and No tobacco Exam: Pre-Anes Outpt Exam: alert, oriented x 3, clear to auscultation bilaterally and regular rate & rhythm Airway: Submandibular: WNL Cervical ROM: WNL MP: 2 Dentition: Full CV/HEM: CV/HEM: Anemia (Plan to transfuse) GI: Comments: Acute abdomen Anesthetic Plan: ASA status: 2E Anesthesia: General Other: RSI Risk of > 500 ml blood loss (7ml/kg in children): Yes, adequate IV access and fluids p lanned PFSH Anesthesia PFSH: Family History Father Hypertension Mother Clotting disorder Grandmother Colon cancer paternal, age onset unknown Denies family history of Ovarian cancer Diabetes Heart disease Hyperlipidemia Breast cancer Anesthesia complication Bleeding disorder Uterine cancer Thyroid condition Stroke Social History Smoking and tobacco status: never smoked Alcohol intake: never Female Reproductive History: Date of last menstrual period: 12/06/20 : 6 Data Anesthesia CBC & Chem 7: 12/14/20 00:05 12/13/20 22:30 Other Labs: Laboratory Results - last 48 hr 12/13/20 12/13/20 12/13/20 22:30 22:30 22:30 WBC 5.9 RBC 3.29 L Hgb 10.3 L Hct 32.0 L MCV 97.3 MCH 31.3 MCHC 32.2 RDW 13.4 Plt Count 220 MPV 10.2 Neut % (Auto) 41.5 Lymph % (Auto) 50.4 [place] % (Auto) 4.9 Eos % (Auto) 2.4 Baso % (Auto) 0.3 Neut # (Auto) 2.44 Lymph # (Auto) 3.0 [place] # (Auto) 0.3 Eos # (Auto) 0.1 Baso # (Auto) 0.0 Nucleated RBC % (auto) 0 Nucleated RBCs # 0.0 Sodium 140 Potassium 3.5 Chloride 104 Carbon Dioxide 26 Anion Gap 13.5 BUN 18 Creatinine 0.7 GFR Calculation 98.3 Glucose 135 H Calculated Osmolality 294 Lactic Acid Calcium 9.0 Total Bilirubin 0.2 AST 18 ALT 11 Alkaline Phosphatase 43 Total Protein 6.4 L Albumin 4.1 Globulin 2.3 Lipase 35 HCG, Qual Ser , Semi-Qnt 574.10 Blood Type Rho(D) Type Antibody Screen Antibody Identification Crossmatch 12/13/20 12/13/20 12/13/20 22:30 22:54 22:57 WBC RBC Hgb Hct MCV MCH MCHC RDW Plt Count MPV Neut % (Auto) Lymph % (Auto) [place] % (Auto) Eos % (Auto) Baso % (Auto) Neut # (Auto) Lymph # (Auto) [place] # (Auto) Eos # (Auto) Baso # (Auto) Nucleated RBC % (auto) Nucleated RBCs # Sodium Potassium Chloride Carbon Dioxide Anion Gap BUN Creatinine GFR Calculation Glucose Calculated Osmolality Lactic Acid 1.5 Calcium Total Bilirubin AST ALT Alkaline Phosphatase Total Protein Albumin Globulin Lipase HCG, Qual Positive H Ser , Semi-Qnt Blood Type O Negative Rho(D) Type Negative Antibody Screen Positive Antibody Identification Anti-D Crossmatch See Detail 12/14/20 00:05 WBC RBC Hgb 7.8 L Hct 23.9 L MCV MCH MCHC RDW Plt Count MPV Neut % (Auto) Lymph % (Auto) [place] % (Auto) Eos % (Auto) Baso % (Auto) Neut # (Auto) Lymph # (Auto) [place] # (Auto) Eos # (Auto) Baso # (Auto) Nucleated RBC % (auto) Nucleated RBCs # Sodium Potassium Chloride Carbon Dioxide Anion Gap BUN Creatinine GFR Calculation Glucose Calculated Osmolality Lactic Acid Calcium Total Bilirubin AST ALT Alkaline Phosphatase Total Protein Albumin Globulin Lipase HCG, Qual Ser , Semi-Qnt Blood Type Rho(D) Type Antibody Screen Antibody Identification Crossmatch Cardiac Studies: No Data to Display
--- NOTE | 2020-12-14 03:19 | PM.OP ---
Operative Report Date of procedure: December 14, 2020 Pre-op Diagnosis: ruptured ectopic Post-op diagnosis: same Post-op Findings: ectopic of uterine scar Procedure Done: removal of ectopic and evacuation of blood from abdomen Specimens removed/disposition: products of conception Pathology: other Surgeon: Dorothy Sim Anesthesia: General Estimated blood loss (mL): 200 Estimated blood loss: 2000 ml of blood in the abdomen IV fluids (mL): 2,500 IV fluids: 3 units of blood Urine output (mL): 200 Complications: none Findings: 2 liters of blood in the abdomen. Ruptured ectopic of previous scar Condition: stable Disposition: PACU Procedure: The patient was taken to the operating room where general anesthesia was administered and found to be adequate. She was prepped and draped in the normal sterile fashion in the dorsal supine position. A Pfannenstiel skin incision was made and carried down to the underlying layer of fascia. The fascia was nicked in the midline and extended laterally with the Winslow scissors. The fascia was then tented up and the rectus muscles dissected off sharply. The peritoneum was entered bluntly with the digit and there was copious amounts of blood. The blood was suctioned and the pelvic contents examined. The left tube and ovary appeared to be normal. The right tube and ovary appeared to be normal. The uterus was palpated and there was a noticeable defect and bulge in the lower uterus. The uterus was gently lifted out of the pelvis and when examined I noticed that there was a ruptured ectopic in her previous scar. Using the Bovie I opened this rupture a little more. The contents were then gently teased out. They were sent to pathology. The area was irrigated. It was bleeding profusely. I attempted to use the Bovie cautery on it which slowed the bleeding down some but not completely. I began suturing the defect. I placed Giana inside of the defect and then closed the defect. There was excellent hemostasis the abdomen was then irrigated and multiple clots totaling to about 1 L were removed. The surgical area was clean and dry with no further bleeding. The peritoneum was closed with 2-0 Monocryl in a running fashion. The fascia was closed with 0 Vicryl. 2 separate sutures overlapping in the midline. The skin was closed with absorbable mick. Patient tolerated the procedure well. Sponge lap and needle counts were correct x3. She was taken to the recovery room in stable condition.
--- NOTE | 2020-12-14 03:30 | SUR.PHASEI ---
0321 PATIENT TO PACU FROM OR. RR EVEN AND UNLABORED. DRESSING TO LOWER ABDOMEN, CDI. CABELLO CATH IN PLACE.
[2020-12-14] MEDS: ketorolac 30 mg/mL INJ IVP ×2 (03:45→10:06)
--- NOTE | 2020-12-14 04:06 | SUR.PHASEI ---
0352 PATIENT TO OB AT THIS TIME. DRESSING TO ABDOMEN, CDI. SPOUSE WITH PATIENT.
[2020-12-14] MEDS: dextrose 5%-lactated ringers 1,000 ML 125 ML IV (04:42)
--- NOTE | 2020-12-14 07:16 | ANE.PACU2 ---
Inpatient post-anesthesia follow up: Airway intact: Yes Vital signs: Temperature 97.2 F Pulse Rate [Bilate ral] 69 Pulse Rate 78 Respiratory Rate 16 Blood Pressure [Ri ght Arm] 82/45 Blood Pressure 94/5 Pulse Oximetry 99 Oxygen Delivery Me thod Room Air Oxygen Flow Rate Fraction of Inspir ed Oxygen Hydration adequate: Yes Nausea and vomiting: No Pain level: 2 Additional Comments: Sedated
[2020-12-14] MEDS: HYDROcodone-acetaminophen 5-325 mg Tablet PO ×2 (07:42→16:28)
[2020-12-14] MEDS: docusate sodium 100 mg Capsule PO (10:08)
--- NOTE | 2020-12-14 11:42 | PM.PN ---
Subjective Subjective: Interval history: The patient is doing ok this morning. She has had breakfast. She is in bed and per the nursing staff, is reluctant to get up or sit in the chair. She reports that she is still in a lot of pain, but the pain is different. She is having incisional pain. She has a cbc pending this morning. Medications: Reviewed: Yes Vitals/I&O/Wt Last Vital Signs Temp 98.4 F 12/14/20 10:21 Pulse 116 H 12/14/20 10:21 Resp 16 12/14/20 10:21 BP 95/55 12/14/20 10:21 Pulse Ox 98 12/14/20 10:21 12/13/20 12/14/20 12/14/20 22:59 06:59 14:59 Intake Total 2350 / 2350 Output Total 2600 / 2600 Balance -250 / -250 Weight last 48 hrs Weight 135 lb Physical Exam Const: COMMON NORMALS: no acute distress, average body habitus, patient oriented x3, no limitations, healthy appearing, alert and well nourished GENERAL APPEARANCE: cooperative, comfortable, well kempt and well developed ORIENTATION/CONSCIOUSNESS: Yes awake, Yes oriented to person, Yes oriented to place and Yes oriented to time Resp: COMMON NORMALS: normal respiratory effort, No retractions and No use of accessory muscles EFFORT & INSPECTION: Yes able to speak in complete sentences GI: COMMON NORMALS: Normal to inspection, nondistended, normoactive bowel sounds present, Soft to palpation and non-tender INSPECTION: Yes normal to inspection PALPATION: Yes Soft to palpation Extremity: COMMON NORMALS: normal to inspection, full ROM and no clubbing, cyanosis or edema Neuro: COMMON NORMALS: patient oriented x3 SENSORIUM/ORIENTATION: Yes alert, Yes oriented to person, Yes oriented to place and Yes oriented to time Psych: APPEARANCE: Yes well kempt Urinary Catheter Management^: Chandler Latex: Cath Placed During This Visit: yes Urinary Catheter Date of Insertion: 12/14/20 Urinary Catheter Time of Insertion: 01:45 Data : 12/14/20 00:05 12/13/20 22:30 A&P Assessment and plan (1) Ruptured ectopic : encouraged patient to ambulate get pain under control may be ready for discharge later today. Status: Acute Attestations Medical Necessity Statement*: patient is admitted for observation post surgery. She is not expected to be here for 2 midnights. She is on day #0 currently. Time Spent in Patient Care: 16 - 35 minutes Coding Level of Care Code Acute Field Consultant for Aureliog Fwd Diagnoses Ruptured ectopic O00.90
[2020-12-14 12:46] LABS: Hematocrit 29.1 % (37.0-47.0); Hemoglobin 9.5 g/dL (11.5-15.3); Mean Corpuscular HGB Conc 32.6 g/dL (30.0-36.0); Mean Corpuscular Hemoglobin 30.1 pg (28.0-34.0); Mean Corpuscular Volume 92.1 fL (81-99); Mean Platelet Volume 10.4 fL (7.4-10.4); Platelet Count 143 10^3/cmm (130-400); Red Blood Count 3.16 10^6/uL (4.1-5.3); Red Cell Distribution Width 14.9 % (12.1-15.1); White Blood Count 7.5 10^3/uL (4.0-10.0)
--- NOTE | 2020-12-14 15:44 | P.DS_ITS ---
Discharge Providers Date of Admission: 12/14/20 03:37 Date of Discharge: December 14, 2020 Attending Provider at Admission: Dorothy Sim MD Attending Provider at Discharge: Dorothy Sim MD Primary Care Provider: Phani Lopez MD Diagnoses at Discharge Discharge Diagnosis (1) Ruptured ectopic : Status: Acute Reason for Visit Reason for Visit: syncope and abd pain Hospital Course Hospital Course The patient was admitted emergently from the ER for ruptured ectopic . She was taken to surgery where she was found to have 2 liters of blood in her peritoneal cavity and a ruptured ectopic in her previous scar. She received three units of blood perioperatively. She did well postoperatively and was ready for discharge about 12 hours after her surgery. This was per patient request. Physical Exam Urinary Catheter Management^: Chandler Latex: Cath Placed During This Visit: yes Urinary Catheter Date of Insertion: 12/14/20 Urinary Catheter Time of Insertion: 01:45 Discharge Data Data Completed and Pending: Completed Studies During Hospitalization Category Date Time Status CT abdomen pelvis w con* [id number] Urge nt Cat Scan 12/13/20 22:48 Completed Pending at discharge Category Date Time Status Antibody Identifi cation Stat Lab 12/13/20 22:54 Results Complete Crossmat ch Routine Lab 12/13/20 22:54 Results Leukocyte Reduced RBC Stat Lab 12/14/20 00:11 Results Rho D Immune Glob ulin Routine Lab 12/14/20 00:17 Results Type and Screen R outine Lab 12/13/20 22:54 Results Pathology: Surgic al [PTH] Routine Pth 12/14/20 07:33 Received Labs from last 24 hours 12/14/20 12/14/20 12/13/20 12:00 00:05 22:57 WBC 7.5 RBC 3.16 L Hgb 9.5 L 7.8 L Hct 29.1 L 23.9 L MCV 92.1 D MCH 30.1 MCHC 32.6 RDW 14.9 Plt Count 143 MPV 10.4 Neut % (Auto) Lymph % (Auto) [place] % (Auto) Eos % (Auto) Baso % (Auto) Neut # (Auto) Lymph # (Auto) [place] # (Auto) Eos # (Auto) Baso # (Auto) Nucleated RBC % (a uto) Nucleated RBCs # Sodium Potassium Chloride Carbon Dioxide Anion Gap BUN Creatinine GFR Calculation Glucose Calculated Osmolal ity Lactic Acid 1.5 Calcium Total Bilirubin AST ALT Alkaline Phosphata se Total Protein Albumin Globulin Lipase HCG, Qual Ser , [place] i-Qnt Blood Type Rho(D) Type Antibody Screen Antibody Identific ation Crossmatch 12/13/20 12/13/20 12/13/20 22:54 22:30 22:30 WBC RBC Hgb Hct MCV MCH MCHC RDW Plt Count MPV Neut % (Auto) Lymph % (Auto) [place] % (Auto) Eos % (Auto) Baso % (Auto) Neut # (Auto) Lymph # (Auto) [place] # (Auto) Eos # (Auto) Baso # (Auto) Nucleated RBC % (a uto) Nucleated RBCs # Sodium Potassium Chloride Carbon Dioxide Anion Gap BUN Creatinine GFR Calculation Glucose Calculated Osmolal ity Lactic Acid Calcium Total Bilirubin AST ALT Alkaline Phosphata se Total Protein Albumin Globulin Lipase HCG, Qual Positive H Ser , [place] i-Qnt 574.10 Blood Type O Negative Rho(D) Type Negative Antibody Screen Positive Antibody Identific ation Anti-D Crossmatch See Detail 12/13/20 12/13/20 22:30 22:30 WBC 5.9 RBC 3.29 L Hgb 10.3 L Hct 32.0 L MCV 97.3 MCH 31.3 MCHC 32.2 RDW 13.4 Plt Count 220 MPV 10.2 Neut % (Auto) 41.5 Lymph % (Auto) 50.4 [place] % (Auto) 4.9 Eos % (Auto) 2.4 Baso % (Auto) 0.3 Neut # (Auto) 2.44 Lymph # (Auto) 3.0 [place] # (Auto) 0.3 Eos # (Auto) 0.1 Baso # (Auto) 0.0 Nucleated RBC % (a uto) 0 Nucleated RBCs # 0.0 Sodium 140 Potassium 3.5 Chloride 104 Carbon Dioxide 26 Anion Gap 13.5 BUN 18 Creatinine 0.7 GFR Calculation 98.3 Glucose 135 H Calculated Osmolal ity 294 Lactic Acid Calcium 9.0 Total Bilirubin 0.2 AST 18 ALT 11 Alkaline Phosphata se 43 Total Protein 6.4 L Albumin 4.1 Globulin 2.3 Lipase 35 HCG, Qual Ser , [place] i-Qnt Blood Type Rho(D) Type Antibody Screen Antibody Identific ation Crossmatch Vitals: Last Vital Signs Temp 98.4 F 12/14/20 10:21 Pulse 116 H 12/14/20 10:21 Resp 16 12/14/20 10:21 BP 95/55 12/14/20 10:21 Pulse Ox 98 12/14/20 10:21 Discharge Plan Discharge Patient Disposition: Home Condition: Stable Prescriptions: New hydrocodone-acetaminophen 5-325 mg Tablet 1 tab PO Q6H PRN (Reason: Moderate To Severe Pain) Qty: 30 RF: 0 Continued ibuprofen 800 mg tablet 800 mg PO Q8H PRN (Reason: pain) Qty: 60 RF: 0 docusate sodium 100 mg Capsule 100 mg PO BID Qty: 60 RF: 0 -U 106.5-1 mg Capsule 1 cap PO DAILY Qty: 60 RF: 0 Iron (ferrous sulfate) 325 mg (65 mg iron) tablet 325 mg PO BID Qty: 60 RF: 0 Discharge Orders: Discharge Order (Routine); Ordered 12/14/20 Ordered By: Dorothy Sim Referrals: Phani Lopez MD [Primary Care Provider] - 01/01/21 3:30 pm (* Your follow up appointment is on 01/01/2021 at 3:30pm. ) Patient Instructions: Ectopic (DC), OB Discharge Report, OB Food/Drug Interaction Guide, Opioid Safety Discharge Attestations Time Spent in Discharge Care*: greater than 30 min Quality Metrics Clinical Quality Measures During this hospital stay, did patient experience: None Coding Level of Care Code Acute Affiliate Marketing Manager for Chg Fwd Diagnoses Ruptured ectopic O00.90
--- NOTE | 2020-12-14 18:17 | PC.NURSE ---
Patient's reported to department, reporting that the pharmacy is already closed. Dr. Sim was contacted to see if there was anything further we could do. Dr. Sim stated there was nothing further we could do, as the prescription is for a narcotic. Explained this to , who acknowledged understanding.
== END 2020-12-14 17:54 | disposition home or self-care (01) ==
LOC: ER 12-14 00:22 → OPS 12-14 01:20 → OBGYN 12-14 03:37
PROVIDERS: Admitting Provider Obstetrics & Gynecology; Emergency Provider Emergency Medicine; PCP Obstetrics & Gynecology; Visit Provider Obstetrics & Gynecology
PROC: 10T20ZZ Resection of Products of Conception, Ectopic, Open Approach (ICD-10-PCS; CPT 59130; principal; 2020-12-14 01:00)
DX: O00.90 Unspecified ectopic pregnancy without intrauterine pregnancy (principal)
CPT/HCPCS: 59130; 74177; 80053; 83605; 83690; 84702; 84703; 85014; 85018; 85025; 85027; 86850; 86870; 86900; 86920; 88305; 90384; 93005; 96361; 96365; 96367; 96375; 99285; G0378; J0330; J0690; J1100; J1885; J2270; J2405; J2704; J2710; J3010; J3490; J7030; P9016; Q9967

== ENCOUNTER 2021-01-18 10:32 | Emergency (ER) | payer SELFPAY ==
[2021-01-18 10:46] VITALS: BP 112/73; PULSE 81; RESP 16; TEMP 36.8; O2SAT 99; BMI 28.2
[2021-01-18 12:11] LABS: Glucose Urine UA Norm (Normal); Ketones Urine Negative (Negative); Protein Urine Neg (Negative); Specific Gravity, Urine 1.005 (1.005-1.030); Urine Appearance Clear (CLEAR); Urine Color Straw (Yellow); pH Urine 7 (5-7)
[2021-01-18 12:12] LABS: Add Urine Culture? No; Add Urine Microscopic? YES; Bacteria Urine TRACE /hpf; Bilirubin Urine Neg (Negative); Blood Urine 1+ (Negative); Leukocyte Esterase Urine Negative (Negative); Nitrate Urine Negative (Negative); RBC Urine 0-4 /hpf (0-2); Squamous Epithelial Cell Urine RARE /hpf (0-5); Urobilinogen Urine Norm (Negative)
--- NOTE | 2021-01-18 12:55 | US_ITS ---
WS: [id number] PELVIC ULTRASOUND REASON FOR VISIT: vaginal discharge/bleeding extremely complex OB history with recent ruptured ectopi c. TECHNIQUE: Grayscale and Doppler transabdominal and transvaginal pelvic ultrasound. FINDINGS: The uterus is severely retroverted. Uterus measures 7.5 cm x 7.7 cm x 4.3 cm. Complex intrauterine cavity with what appears to be abnorma l endometrium with significant color Doppler blood flow. No focal fluid collection that could be cons trued as a gestational sac or pseudogestational sac. The right ovary ovary measures 4.7 cm x 3.5 cm x 2.1 cm. There are multiple cysts within the right ov shyla with a dominant cyst 2.8 cm x 2.5 cm. Normal blood flow. The left ovary measures 2.5 cm x 2.2 cm x 1.4 cm. There are multiple small cysts within the left ovar y. Normal blood flow. There is no significant amount of free fluid. US/US pelvic with transvaginal IMPRESSION: Ultrasound findings as above. In view of the complex OB history there would be several considerations. This could represent a missed AB. Ectopic would have to be considered . Unlikely this represents a molar with theca lutein cysts.
--- NOTE | 2021-01-18 13:06 | W.ED.FEMALGU ---
HPI - Female Genitourinary General: Chief complaint: Urogenital-Female Stated complaint: LOW BACK AND LOW ABD PAIN/SENT BY DR CHOE Source: patient and family () Mode of arrival: ambulatory Limitations: no limitations History of Present Illness: HPI Narrative: Patient is a 30-year-old female who recently had an ectopic that had ruptured. She received about 3 units of blood perioperatively. She did well after surgery and was discharged home. Patient states that yesterday she developed bilateral flank pain radiating to her lower abdomen and pinkish discharge from her vagina. She called her machine filler shredder who advised that she come to the ED for evaluation. I spoke to Dr. Choe her java web application developer and he wants on ultrasound of her pelvis and a urinalysis. Location of symptoms: vaginal and flank Severity: moderate Severity scale (1-10): 2 Consistency: intermittent Vaginal bleeding: scant Associated symptoms: Reports abdominal pain, vaginal bleeding and vaginal discharge; Deny short of breath, fevers/chills, headache(s), nausea, rash, seizures, syncope or weakness Date of Last Menstrual Period: 01/03/21 Review of Systems General: Reports: 10 or more systems reviewed and unremarkable except in HPI and below Const: Denies: fever(s), chills or body aches Eyes: Denies: change in vision or blurry vision ENMT: Denies: throat pain, enlarged tonsils, odynophagia, hoarseness, mouth pain or swelling of lips/tongue Card: Denies: syncope Resp: Denies: dyspnea, productive cough or non-productive cough GI: Reports: abdominal pain; Denies: nausea : Reports: vaginal discharge Musc: Denies: neck pain, back pain or extremity swelling Skin/Breast: Denies: rash, pruritus or erythema Neuro: Denies: headache(s) Endo: Denies: polyuria, polydipsia or tired all the time [facility] ED PFSH: Family History Father Hypertension Mother Clotting disorder Grandmother Colon cancer paternal, age onset unknown Denies family history of Ovarian cancer Diabetes Heart disease Hyperlipidemia Breast cancer Anesthesia complication Bleeding disorder Uterine cancer Thyroid condition Stroke Social History Smoking and tobacco status: never smoked Alcohol intake: never Female Reproductive History: Date of last menstrual period: 01/03/21 Physical Exam Const: COMMON NORMALS: no acute distress, average body habitus, patient oriented x3, no limitations, healthy appearing, alert and well nourished HENMT: COMMON NORMALS: normocephalic, atraumatic and moist oral mucous membranes HEAD & SCALP: normocephalic and atraumatic Neck/C-Spine: COMMON NORMALS: no meningeal signs and no JVD Resp: COMMON NORMALS: normal respiratory effort, No retractions, No use of accessory muscles, clear to auscultation bilaterally and percussion normal AUSCULTATION: clear to auscultation bilaterally PERCUSSION: percussion normal Cardio: COMMON NORMALS: no JVD, regular rate, regular rhythm, S1 normal heart sound present, S2 normal heart sound present, No gallops present (Cardio), No clicks present (Cardio), No murmurs present (Cardio), No rub (Cardio) and Peripheral pulses 2+ throughout RATE: regular rate RHYTHM: regular rhythm HEART SOUNDS: S1 normal heart sound present and S2 normal heart sound present PERIPHERAL PULSES: Peripheral pulses 2+ throughout GI: COMMON NORMALS: Normal to inspection, nondistended, normoactive bowel sounds present, Soft to palpation, non-tender, No hepatosplenomegaly present, no masses and no bruits PALPATION: Yes Soft to palpation and Yes No hepatosplenomegaly present : COMMON NORMALS: Yes no CVA tenderness BLADDER/KIDNEY EXAM: Yes no CVA tenderness SPECULUM EXAM - VAGINA: Yes vaginal bleeding OB/EXTERNAL & SPECULUM: vaginal bleeding Back/Pelvis: COMMON NORMALS: no CVA tenderness Extremity: COMMON NORMALS: normal to inspection, full ROM, capillary refill normal, no calf tenderness and no pedal edema Neuro: COMMON NORMALS: patient oriented x3 SENSORIUM/ORIENTATION: Yes alert MENINGEAL SIGNS: Yes no meningeal signs Skin: COMMON NORMALS: no rashes or lesions noted, no wounds, turgor normal, no jaundice, no petechiae and no mottling GENERAL SKIN EXAM: no rashes or lesions noted and turgor normal Course Reevaluation(s): Reevaluation #1: Discussed her lab and imaging findings with her. Also discussed my conversation with Dr. Choe with her. Explained that he would like to see her in the office next week. She initially did not want a prescription for pain medication as she said her pain is improved but eventually she agreed to take the prescription and fill it only if she needs it. She will call his office to schedule an appointment as soon as possible. Time: 15:27 Consultations: Consultation #1: Discussed with patient and Dr. Choe, her machine filler shredder and java web application developer. Discussed her ultrasound findings with him. He advised that we will send her home with pain medication and she should follow-up with him in the office next week. Time: 15:02 Vital Signs: Vital signs: Vital Signs Temperature 98.3 F 01/18/21 10:46 Pulse Rate 81 01/18/21 10:46 Respiratory Rate 16 01/18/21 10:46 Blood Pressure 112/73 01/18/21 10:46 Pulse Oximetry 99 01/18/21 10:46 MDM - Female MDM Narrative: Medical decision making narrative: 30-year-old female patient who recently had an ectopic and presented to the emergency department today with vaginal bleeding, flank pain and lower abdominal pain. Lab work in the emergency department was unremarkable and an ultrasound done of her pelvis showed some abnormal findings but nothing that is emergent. She will follow up with her java web application developer next week Thursday for further evaluation and management. Medical Records: Attestation: I reviewed the patient's medical records. Lab Data: Attestation: I reviewed the patient's lab results. Labs: Lab Results 01/18/21 01/18/21 01/18/21 Range/Units 11:11 13:10 13:10 WBC 7.4 (4.0-10.0) 10^3/ uL RBC 4.08 L (4.1-5.3) 10^6/u L Hgb 12.3 (11.5-15.3) g/dL Hct 38.0 (37.0-47.0) % MCV 93.1 (81-99) fL MCH 30.1 (28.0-34.0) pg MCHC 32.4 (30.0-36.0) g/dL RDW 12.4 (12.1-15.1) % Plt Count 204 (130-400) 10^3/c mm MPV 10.3 (7.4-10.4) fL Neut % (Auto) 74.3 % Lymph % (Auto) 19.2 % [place] % (Auto) 5.3 % Eos % (Auto) 0.8 % Baso % (Auto) 0.3 % Neut # (Auto) 5.47 (1.8-7.7) 10^3/u L Lymph # (Auto) 1.4 (0.8-4.8) 10^3/u L Preble # (Auto) 0.4 (0.2-0.9) 10^3/u L Eos # (Auto) 0.1 (0.0-0.8) 10^3/u L Baso # (Auto) 0.0 (0.0-0.1) 10^3/u L Nucleated RBC % (a uto) 0 % Nucleated RBCs # 0.0 /100WBC Sodium 139 (136-145) mmol/L Potassium 3.6 (3.5-5.1) mmol/L Chloride 104 (98-107) mmol/L Carbon Dioxide 26 (22-29) mmol/L Anion Gap 12.6 (5-19) BUN 9 (6-20) mg/dL Creatinine 0.5 (0.5-0.9) mg/dL GFR Calculation 144.9 H (90-130) mL/min Glucose 92 (65-115) mg/dL Calculated Osmolal ity 286 (285-295) mOsm/k g Calcium 9.0 (8.5-10.5) mg/dL Total Bilirubin 0.2 (0.15-1.2) mg/dL AST 17 (0-32) U/L ALT 13 (0-33) U/L Alkaline Phosphata se 57 (35-105) IU/L Total Protein 7.1 (6.6-8.7) g/dL Albumin 4.3 (3.5-5.2) g/dL Globulin 2.8 (1.3-4.6) g/dL HCG, Qual (Negative) Urine Color Straw (Yellow) Urine Appearance Clear (CLEAR) Urine pH 7 (5-7) Ur Specific Gravit y 1.005 (1.005-1.030) Urine Protein Neg (Negative) Urine Glucose (UA) Norm (Normal) Urine Ketones Negative (Negative) Urine Blood 1+ H (Negative) Urine Nitrate Negative (Negative) Urine Bilirubin Neg (Negative) Urine Urobilinogen Norm (Negative) mg/dL Ur Leukocyte Tana ase Negative (Negative) Urine RBC 0-4 H (0-2) /hpf Urine WBC None (0-5) /hpf Ur Squamous Epith Cells Rare (0-5) /hpf Amorphous Sediment Not Reportable Urine Bacteria Trace (NONE) /hpf 01/18/21 Range/Units 13:10 WBC (4.0-10.0) 10^3/ uL RBC (4.1-5.3) 10^6/u L Hgb (11.5-15.3) g/dL Hct (37.0-47.0) % MCV (81-99) fL MCH (28.0-34.0) pg MCHC (30.0-36.0) g/dL RDW (12.1-15.1) % Plt Count (130-400) 10^3/c mm MPV (7.4-10.4) fL Neut % (Auto) % Lymph % (Auto) % Preble % (Auto) % Eos % (Auto) % Baso % (Auto) % Neut # (Auto) (1.8-7.7) 10^3/u L Lymph # (Auto) (0.8-4.8) 10^3/u L Preble # (Auto) (0.2-0.9) 10^3/u L Eos # (Auto) (0.0-0.8) 10^3/u L Baso # (Auto) (0.0-0.1) 10^3/u L Nucleated RBC % (a uto) % Nucleated RBCs # /100WBC Sodium (136-145) mmol/L Potassium (3.5-5.1) mmol/L Chloride (98-107) mmol/L Carbon Dioxide (22-29) mmol/L Anion Gap (5-19) BUN (6-20) mg/dL Creatinine (0.5-0.9) mg/dL GFR Calculation (90-130) mL/min Glucose (65-115) mg/dL Calculated Osmolal ity (285-295) mOsm/k g Calcium (8.5-10.5) mg/dL Total Bilirubin (0.15-1.2) mg/dL AST (0-32) U/L ALT (0-33) U/L Alkaline Phosphata se (35-105) IU/L Total Protein (6.6-8.7) g/dL Albumin (3.5-5.2) g/dL Globulin (1.3-4.6) g/dL HCG, Qual Negative (Negative) Urine Color (Yellow) Urine Appearance (CLEAR) Urine pH (5-7) Ur Specific Gravit y (1.005-1.030) Urine Protein (Negative) Urine Glucose (UA) (Normal) Urine Ketones (Negative) Urine Blood (Negative) Urine Nitrate (Negative) Urine Bilirubin (Negative) Urine Urobilinogen (Negative) mg/dL Ur Leukocyte Tana ase (Negative) Urine RBC (0-2) /hpf Urine WBC (0-5) /hpf Ur Squamous Epith Cells (0-5) /hpf Amorphous Sediment Urine Bacteria (NONE) /hpf Imaging Data: US: Attestation: I personally reviewed and interpreted this imaging study as follows: Radiologist's impression: [place] [address] Ultrasound Report Signed Patient: Marybeth Lara #: [id number] : 1990Acct#:[id number] Age/Sex: 30 / FADM Date: 01/18/21 Loc: ERRoom/Bed: Attending Dr: Ordering Provider/Ordering MD: Dennis Brice [place] [facility] [place] Service: 01/18/21 Procedure(s): US pelvic with transvaginal Accession Number(s): [id number] Report Number: [id number] WS: [id number] PELVIC ULTRASOUND REASON FOR VISIT: vaginal discharge/bleeding extremely complex OB history with recent ruptured ectopic. TECHNIQUE: Grayscale and Doppler transabdominal and transvaginal pelvic ultrasound. FINDINGS: The uterus is severely retroverted. Uterus measures 7.5 cm x 7.7 cm x 4.3 cm. Complex intrauterine cavity with what appears to be abnormal endometrium with significant color Doppler blood flow. No focal fluid collection that could be construed as a gestational sac or pseudogestational sac. The right ovary ovary measures 4.7 cm x 3.5 cm x 2.1 cm. There are multiple cysts within the right ovary with a dominant cyst 2.8 cm x 2.5 cm. Normal blood flow. The left ovary measures 2.5 cm x 2.2 cm x 1.4 cm. There are multiple small cysts within the left ovary. Normal blood flow. There is no significant amount of free fluid. US/US pelvic with transvaginal IMPRESSION: Ultrasound findings as above. In view of the complex OB history there would be several considerations. This could represent a missed AB. Ectopic would have to be considered. Unlikely this represents a molar with theca lutein cysts. Dictated By:Nguyễn Fenton Jr, MD Signed By:Nguyễn Fenton Jr MDSigned Date/Time:01/18/21 1443 DD/ 1427 Discharge Plan Discharge Patient Disposition: Home Clinical Impression: Pelvic pain, Abnormal vaginal bleeding Condition: Stable Prescriptions: [place] 5-325 mg tablet 1 tab PO Q8H PRN (Reason: pain) Qty: 12 RF: 0 Continued -U 106.5-1 mg Capsule 1 cap PO DAILY Qty: 60 RF: 0 Discharge Orders: Discharge ED (Routine); Ordered 01/18/21 Ordered By: Dennis Brice Discharge Diet: Usual diet Discharge Activity: Increase activity as tolerated Patient Instructions: Opioid Safety, Pelvic Pain Activity Restrictions/Additional Instructions: Return for any new or worsening symptoms. Follow-up with Dr. Choe as soon as possible. Take the pain medicine as needed for pain. Coding Level of Care Code ED Scleroscope Tester for Jamal Chou Exam Problem Focused
[2021-01-18 13:24] LABS: Basophils % 0.3 %; Eosinophils # 0.1 10^3/uL (0.0-0.8); Eosinophils % 0.8 %; Hemoglobin 12.3 g/dL (11.5-15.3); Lymphocytes # 1.4 10^3/uL (0.8-4.8); Lymphocytes % 19.2 %; Mean Corpuscular HGB Conc 32.4 g/dL (30.0-36.0); Mean Corpuscular Hemoglobin 30.1 pg (28.0-34.0); Mean Corpuscular Volume 93.1 fL (81-99); Mean Platelet Volume 10.3 fL (7.4-10.4); Monocytes # 0.4 10^3/uL (0.2-0.9); Monocytes % 5.3 %; Neutrophils # 5.47 10^3/uL (1.8-7.7); Neutrophils % 74.3 %; Nucleated Red Blood Cells % 0 %; Platelet Count 204 10^3/cmm (130-400); Red Blood Count 4.08 10^6/uL (4.1-5.3); Red Cell Distribution Width 12.4 % (12.1-15.1); White Blood Count 7.4 10^3/uL (4.0-10.0)
[2021-01-18 13:48] LABS: Alanine Aminotransferase 13 U/L (0-33); Albumin Level 4.3 g/dL (3.5-5.2); Alkaline Phosphatase 57 IU/L (35-105); Anion Gap 12.6 (5-19); Aspartate Amino Transferase 17 U/L (0-32); Blood Urea Nitrogen 9 mg/dL (6-20); Carbon Dioxide 26 mmol/L (22-29); Chloride 104 mmol/L (98-107); Globulin 2.8 g/dL (1.3-4.6); Glomerular Filtration Rate 144.9 mL/min (90-130); Glucose 92 mg/dL (65-115); Osmolality Calculated 286 mOsm/kg (285-295); Potassium 3.6 mmol/L (3.5-5.1); Sodium 139 mmol/L (136-145); Total Bilirubin 0.2 mg/dL (0.15-1.2); Total Protein 7.1 g/dL (6.6-8.7)
[2021-01-18 14:00] LABS: HCG, Serum Qual Negative (Negative)
--- NOTE | 2021-01-18 15:40 | DCPLANNER ---
assistant finance manager was asked to schedule a follow up appointment for patient with Dr. Lopez at [facility]. assistant finance manager called the [facility] care clinic, spoke with Genevieve, gave clinic patients information. A follow up appointment was scheduled for Thursday, January 21, [address] at 7:[address] Lopez. Clinic will contact patient with appointment information.
--- NOTE | 2021-01-22 15:56 | DCPLANNER ---
Patient had a follow up appointment scheduled for 01.21.21 with [facility] - patient did attend appointment.
== END 2021-01-18 15:45 | disposition home or self-care (01) ==
PROVIDERS: Nurse Practitioner Family; Emergency Provider Family Medicine
DX: R10.2 Pelvic and perineal pain (principal); N93.9 Abnormal uterine and vaginal bleeding, unspecified
CPT/HCPCS: 36415; 76830; 76856; 80053; 81001; 84703; 85025; 99283

== ENCOUNTER → 2021-01-28 10:20 | Outpatient (BNVA) | payer SELFPAY ==
--- NOTE | 2021-01-28 15:59 | ANES.PREANE2 ---
Pre-Anesthetic Assessment Pre-Anesthetic Assessment: Height/Weight: Height 1.47 m Preop Diagnosis: ruptured ectopic Proposed Procedure: None Familial anesthetic complications: None Was Beta Shahram taken within 24 hours: N/A Was Clonidine taken within 24 hours: N/A Last intake: breakfast 07 Social: Social History: No alcohol and No tobacco Exam: Pre-Anes Outpt Exam: alert, oriented x 3, clear to auscultation bilaterally and regular rate & rhythm Airway: Cervical ROM: WNL MP: 2 Dentition: Full Anesthetic Plan: ASA status: 1 Anesthesia: General Risk of > 500 ml blood loss (7ml/kg in children): No PFSH Anesthesia PFSH: Family History Father Hypertension Mother Clotting disorder Grandmother Colon cancer paternal, age onset unknown Denies family history of Ovarian cancer Diabetes Heart disease Hyperlipidemia Breast cancer Anesthesia complication Bleeding disorder Uterine cancer Thyroid condition Stroke Social History (Updated 01/28/21 @ 11:31 by Tigist Green RN) Smoking and tobacco status: never smoked Alcohol intake: never Female Reproductive History: Date of last menstrual period: 01/03/21 Data Anesthesia Cardiac Studies: No Data to Display
--- NOTE | 2021-01-28 20:31 | ANE.PACU2 ---
Inpatient post-anesthesia follow up: Airway intact: Yes Vital signs: Temperature Pulse Rate Respiratory Rate Blood Pressure Pulse Oximetry Oxygen Delivery Me thod Oxygen Flow Rate Fraction of Inspir ed Oxygen Hydration adequate: Yes Nausea and vomiting: No Pain level: 2 Mental status: Baseline
== END ==
PROVIDERS: Visit Provider Obstetrics & Gynecology
DX: N83.202 Unspecified ovarian cyst, left side (principal); N83.201 Unspecified ovarian cyst, right side
CPT/HCPCS: 76830

== ENCOUNTER 2021-01-28 17:52 | Observation (INO) | payer SELFPAY ==
[2021-01-28] VITALS (15 sets, daily range): BP systolic 95–135; BP diastolic 53–81; PULSE 73–127; RESP 14–22; TEMP 36.4–36.9; O2SAT 99–100; BMI 27.6
[2021-01-28] MEDS: sodium chloride 0.9% 1,000 ML 30 ML IV (16:11)
--- NOTE | 2021-01-28 16:17 | W.PM.OPSUD ---
Surgery/Procedure H&P Update DATE OF PROCEDURE: January 28, 2021 DATE H&P PERFORMED: 01/28/21 H&P UPDATE INFORMATION: I have reviewed H&P completed within last 30 days, I have examined patient prior to procedure and No changes to prior documentation PREOP DIAGNOSIS: ruptured ectopic PLANNED PROCEDURE: Operation Date: 01/28/21 16:50 Proposed Procedures p Hysteroscopy(Not Applicable) - Phani Lopez MD s Dilation And Curettage (D&C)(Not Applicable) - Phani Lopez MD s Laparoscopy Diagnostic(Not Applicable) - Phani Lopez MD
--- NOTE | 2021-01-28 18:00 | P.OP_ITS ---
Operative Report Date of procedure: January 28, 2021 Pre-op Diagnosis: Abnormal uterine bleeding, right hemorrhagic cyst Post-op diagnosis: same Procedure Done: Diagnostic laparoscopy and dilation suction and curettage Specimens removed/disposition: Endometrial curettings Pathology: Endometrial curettings Surgeon: Phani Lopez MD Anesthesia: General Estimated blood loss (mL): 100 IV fluids (mL): 1,000 Urine output (mL): 50 Complications: none Condition: stable Disposition: PACU Brief History: 30-year-old female G5 para 3 with abnormal uterine bleeding and suspected right hemorrhagic cyst. She is post heterotopic a month ago for which she had a D&C and scar ectopic . Procedure: DESCRIPTION OF PROCEDURE: After informed consent, the patient was taken to the operating room where general anesthesia was administered. The patient was examined under anesthesia and found to have a normal uterus with normal adnexa. She was placed in the dorsal lithotomy position and prepped and draped in sterile fashion. Pre- Procedure Time-Out verifying the correct patient identity, correct procedure verified with consent, correct site and side, correct patient position, availability of correct implants and any special equipment or requirements was performed and acknowledge by the OR team. A weighted speculum was placed in the vagina, and the anterior lip of cervix was grasped with the single toothed tenaculum. A uterine manipulator was advanced into the endocervical. Tenaculum was removed after uterine manipulator was secured. The speculum was removed from the vagina. An intraumbilical incision was made with a scalpel. While tenting up on the abdomen, a Verres needle with sleeve was admitted into the intra-abdominal cavity. A saline drop test was performed and noted to be within normal limits. Pneumoperitoneum was attained with 4 liters of carbon dioxide. The Verres needle was removed. A 5 mm trocar and sleeve were admitted into the abdomen and laparoscopic confirmation of location was achieved, A second incision was made 3 cm above the symphysis pubis, and a 5 mm trocar and sleeve were admitted into the abdomen under direct, laparoscopic visualization without complication. A survey revealed normal abdominal anatomy but pelvic survey shows extreme retroflex uterus pulling adnexa into cul de sac, normal left ovary and right ovary with follicular cyst, serous fluid in cul de sac. A 5 mm blunt probe was advanced through the second trocar sleeve, and light manipulation of ovaries and uterus to assess the posterior aspects was performed. Carbon dioxide was allowed to escape from the abdomen. The instruments were removed, and skin cover with a bandage. then proceeded to performe dilation and curettage. A sterile open side speculum was placed in the patient?s vagina. A single-tooth tenaculum was then applied to the cervix. The uterus was then gently sounded to 9 cm and a suction curette was advanced gently to the uterine fundus and product of conception emptied. A sharp curettage was then performed until a gritty texture was noted. There was minimal bleeding noted and the tenaculum was removed with good hemostasis noted. The instruments were removed from the vagina, and excellent hemostasis was noted. The patient tolerated the procedure well, and sponge, lap and needle count were correct times two. The patient taken to the recovery room in good condition.
--- NOTE | 2021-01-28 18:09 | P.PCN_ITS ---
PACU note PACU note: VSS, Good respiratory effort, report to COMMUNITY DEVELOPMENT WORKER Post-Anesthesia Exam: awake
--- NOTE | 2021-01-28 18:09 | PM.PACU ---
PACU note PACU note: VSS, Good respiratory effort, report to FARM BUTCHER Post-Anesthesia Exam: awake
--- NOTE | 2021-01-28 18:27 | SUR.PHASEI ---
PT AWAKE ALERT ON RA GOOD RESP NOTED ABD SOFT 2 SITES WITH DERMABOND, VSS.
[2021-01-28] MEDS: ondansetron 2 mg/ML SDV 2 mL 4 MG IVP (18:30)
--- NOTE | 2021-01-28 18:34 | SUR.PHASEI ---
PT COMPLAINS OF NAUSEA SEE MED GIVEN COOL CLOTH TO FOREHEAD, PT AT BEDSIDE.
[2021-01-28] MEDS: ketorolac 30 mg/mL INJ IVP (20:23)
[2021-01-28] MEDS: estrogens Conjugated 25 mg/5 mL SDV IVP (21:00)
[2021-01-29] MEDS: dextrose 5%-lactated ringers 1,000 ML 125 ML IV (03:16)
[2021-01-29] MEDS: ketorolac 30 mg/mL INJ IVP (03:16)
[2021-01-29] MEDS: estrogens Conjugated 25 mg/5 mL SDV IVP (03:38)
[2021-01-29 04:00] VITALS: BP 92/54; PULSE 86; RESP 16; TEMP 36.8
[2021-01-29 07:40] LABS: Hematocrit 31.2 % (37.0-47.0); Hemoglobin 10.1 g/dL (11.5-15.3); Mean Corpuscular HGB Conc 32.4 g/dL (30.0-36.0); Mean Corpuscular Hemoglobin 29.7 pg (28.0-34.0); Mean Corpuscular Volume 91.8 fL (81-99); Mean Platelet Volume 10.2 fL (7.4-10.4); Platelet Count 201 10^3/cmm (130-400); Red Cell Distribution Width 11.9 % (12.1-15.1); White Blood Count 5.4 10^3/uL (4.0-10.0)
--- NOTE | 2021-01-29 07:45 | PM.OBGYDC ---
Discharge Providers TECHNICAL OPERATIONS MANAGER Date of Admission: 01/28/21 17:52 Date of Discharge: 01/29/21 Attending Provider at Admission: Phani Lopez MD Attending Provider at Discharge: Phani Lopez MD Reason for Visit Reason for Visit: hysteroscopy, d and c, diagnostic laparoscopy Hospital Course Hospital Course 30-year-old female G5, P3 with profuse vaginal bleeding treated with Lysteda unresponsive and continue to bleed for an additional week. Ultrasound was ordered and showed blood products and cavity and possible right hemorrhagic cyst with moderate fluid in cul-de-sac. The patient was admitted for a diagnostic laparoscopy and dilation and curettage. Procedures were performed without complications. Findings showing extreme retroflexed uterus. Postop observation was uneventful. Phani afebrile and hemodynamically stable, tolerating diet well, ambulating without difficulty. Refers very little bleeding. Physical Exam Narrative: EXAM NARRATIVE: GA: Alert and oriented ?3. HEENT: WNL. Heart: Regular rate and rhythm. Lungs: Clear to auscultation bilaterally. Abdomen: Bowel sounds present, nontender, minimal tenderness, incision clean and dry, no redness, pain or edema. QUALITY CONTROL ANALYST: spotting. Extremities: No edema, no cyanosis, no calves pain. Urinary Catheter Management^: Chandler: Cath Placed During This Visit: no Discharge Data Data Completed and Pending: Pending at discharge Category Date Time Status ES surgery / GI i mages Routine Exams 01/28/21 16:01 Taken Labs from last 24 hours 01/29/21 05:03 WBC 5.4 RBC 3.40 L Hgb 10.1 L Hct 31.2 L MCV 91.8 MCH 29.7 MCHC 32.4 RDW 11.9 L Plt Count 201 MPV 10.2 Vitals: Last Vital Signs Temp 98.3 F 01/29/21 04:00 Pulse 86 01/29/21 04:00 Resp 16 01/29/21 04:00 BP 92/54 01/29/21 04:00 Pulse Ox 99 01/28/21 19:00 Discharge Plan Discharge Patient Disposition: Home Condition: Stable Prescriptions: New ferrous sulfate 325 mg (65 mg iron) tablet 325 mg PO BID Qty: 60 RF: 0 ibuprofen 800 mg tablet 800 mg PO TID PRN (Reason: pain) Qty: 60 RF: 0 docusate sodium [Colace] 100 mg capsule 100 mg PO BID Qty: 30 RF: 0 No Action No Known Home Medications RF: 0 Discharge Orders: Discharge Order (Routine); Ordered 01/29/21 Ordered By: Phani Lopez Referrals: Phani Lopez MD [Physician] - 2 weeks Discharge Diet: Usual diet Discharge Activity: Increase activity as tolerated Patient Instructions: Dilation and Curettage (DC), Exploratory Laparoscopy (DC) Activity Restrictions/Additional Instructions: 1. Please call [facility] clinic on next working day to make your post operative appointment in 2 weeks. 2. Please stay home until you come back to the clinic on first post-operative check up. 3. Please follow instructions on your medications CAREFULLY. 4. If you have abdominal incision, do not cover it unless dressing is necessary because of drainage. OK to shower, but avoid bath. Leave steri-strips until they fall off. If they are still on one week after surgery, you may remove them. 5. If you had vaginal surgery or vaginal repair, Dr. Lopez may instruct you to take SITZ bath. 6. Yellow, blood tinged odorous vaginal discharge is usually normal after hysterectomy or vaginal surgeries. 7. No sexual intercourse, tampons, or douches until you are completely released from the post-operative care. 8. Avoid constipation by eating right and maybe using some Metamucil or Milk of Magnesia. 9. All prescription refills are given during the working hours. Please do no wait till it runs out. Call the clinic at [phone] before your medication runs out. The clinic will get in touch with your doctor to prescribe medications if necessary. 10. Please remain within 40 mile radius from our hospital because emergencies do happen now and then during the post-operative period. 11. If you have stairs at home, take one step at a time slowly and minimize the number of trips. It helps to stay in one floor for the next few days. No lifting except what you can lift by one hand until you are released from the post-operative care. 12. Driving is discouraged until you are well healed. It may be 3-4 weeks before you feel strong enough to drive. You should be able to turn and look through the rear window without pain and you should be able to push the brake pedal very hard without pain before you drive. No fast rules, but SAFETY should be your primary concern. DO NOT drive if you are on sedating medications such as narcotics. 13. Call the clinic (during working hours) to make urgent appointment or go to the Emergency room, if any of the following occurs: i. Vaginal bleeding becomes heavy, more than a period. ii. Incision becomes red and sore, or drains pus. iii. Your temperature is over 100.4 or you have chill. iv. IV site becomes red and swollen (a little ``knot?? is usually OK) v. Persistent nausea and vomiting vi. Persistent constipation or diarrhea vii. Rash or allergic reaction to medications. Discharge Attestations TECHNICAL OPERATIONS MANAGER Time Spent in Discharge Care*: greater than 30 min Coding Level of Care Code Acute Small Parts Shaper Operator for Jamal Chou
[2021-01-29 07:54] VITALS: PULSE 90; RESP 18; O2SAT 99
[2021-01-29 08:24] VITALS: BP 98/55; PULSE 84; RESP 16; TEMP 36.8
[2021-01-29 08:29] VITALS: BP 98/55; PULSE 84; RESP 16; TEMP 36.8
== END 2021-01-29 08:32 | disposition home or self-care (01) ==
LOC: OBGYN 17:53
PROVIDERS: Admitting Provider Obstetrics & Gynecology; Visit Provider Obstetrics & Gynecology
PROC: 0UJD8ZZ Inspection of Uterus and Cervix, Via Natural or Artificial Opening Endoscopic (ICD-10-PCS; CPT 58555; principal; 2021-01-28 16:30)
PROC: (CPT 58120; 2021-01-28 16:30)
PROC: (CPT 49320; 2021-01-28 16:30)
DX: N93.9 Abnormal uterine and vaginal bleeding, unspecified (principal); N83.201 Unspecified ovarian cyst, right side
CPT/HCPCS: 58120; 36415; 81025; 85027; 88305; G0378; J0330; J0690; J1100; J1410; J1885; J2250; J2405; J2704; J2710; J3010; J3490; J7030

== ENCOUNTER → 2021-04-04 13:58 | Outpatient (BNVA) | payer SELFPAY | PROVIDERS: Visit Provider Obstetrics & Gynecology | DX: N93.9 Abnormal uterine and vaginal bleeding, unspecified (principal); Z20.822 Contact with and (suspected) exposure to COVID-19 | CPT/HCPCS: 87635 ==

== ENCOUNTER 2021-04-10 06:06 | Day surgery (SDC) | payer SELFPAY ==
[2021-04-08 10:31] VITALS: BMI 28.2
--- NOTE | 2021-04-08 11:00 | ANES.PREANE2 ---
Pre-Anesthetic Assessment Pre-Anesthetic Assessment: Height/Weight: Height 1.47 m Weight 61.235 kg Preop Diagnosis: Abnormal uterine bleeding, pelvic pain, ovarian cyst Proposed Procedure: Operation Date: 04/10/21 07:00 Proposed Procedures p Total Vaginal Hysterectomy 37906 n93.9(Not Applicable) - Phani Lopez MD Familial anesthetic complications: None Social: Social History: No alcohol and No tobacco Exam: Pre-Anes Outpt Exam: alert, oriented x 3, clear to auscultation bilaterally and regular rate & rhythm Airway: Cervical ROM: WNL MP: 1 Dentition: Full Anesthetic Plan: ASA status: 1 Anesthesia: General Risk of > 500 ml blood loss (7ml/kg in children): No PFSH Anesthesia PFSH: Family History Father Hypertension Mother Clotting disorder Grandmother Colon cancer paternal, age onset unknown Denies family history of Ovarian cancer Diabetes Heart disease Hyperlipidemia Breast cancer Anesthesia complication Bleeding disorder Uterine cancer Thyroid condition Stroke Social History (Updated 04/08/21 @ 07:51 by Tigist Green RN) Smoking and tobacco status: never smoked Alcohol intake: never Substance/Drug Use: never Female Reproductive History: Date of last menstrual period: 03/19/21 Data Anesthesia Cardiac Studies: No Data to Display
[2021-04-08 11:05] LABS: Basophils % 0.2 %; Eosinophils # 0.1 10^3/uL (0.0-0.8); Eosinophils % 1.7 %; Hematocrit 49.2 % (37.0-47.0); Hemoglobin 15.3 g/dL (11.5-15.3); Lymphocytes # 1.9 10^3/uL (0.8-4.8); Lymphocytes % 44.1 %; Mean Corpuscular HGB Conc 31.1 g/dL (30.0-36.0); Mean Corpuscular Hemoglobin 29.7 pg (28.0-34.0); Mean Corpuscular Volume 95.3 fL (81-99); Mean Platelet Volume 10.4 fL (7.4-10.4); Monocytes # 0.3 10^3/uL (0.2-0.9); Monocytes % 6.4 %; Neutrophils % 47.4 %; Nucleated Red Blood Cells % 0 %; Platelet Count 207 10^3/cmm (130-400); Red Blood Count 5.16 10^6/uL (4.1-5.3); Red Cell Distribution Width 13.3 % (12.1-15.1); White Blood Count 4.2 10^3/uL (4.0-10.0)
[2021-04-08 11:26] LABS: Anion Gap 16.9 (5-19); Blood Urea Nitrogen 10 mg/dL (6-20); Calcium 8.7 mg/dL (8.5-10.5); Carbon Dioxide 22 mmol/L (22-29); Chloride 104 mmol/L (98-107); Glomerular Filtration Rate 187.4 mL/min (90-130); Glucose 79 mg/dL (65-115); Osmolality Calculated 286 mOsm/kg (285-295); Potassium 3.9 mmol/L (3.5-5.1); Sodium 139 mmol/L (136-145)
[2021-04-08 11:34] LABS: OR HCG Qualitative Urine Negative (Negative)
[2021-04-08 11:37] LABS: Urine Appearance Clear (CLEAR); Urine Color Yellow (Yellow)
[2021-04-08 11:38] LABS: Add Urine Culture? No; Add Urine Microscopic? YES; Bacteria Urine TRACE /hpf; Bilirubin Urine Neg (Negative); Blood Urine 2+ (Negative); Glucose Urine UA Norm (Normal); Ketones Urine Negative (Negative); Leukocyte Esterase Urine Negative (Negative); Nitrate Urine Negative (Negative); Protein Urine Neg (Negative); RBC Urine 0-4 /hpf (0-2); Specific Gravity, Urine 1.005 (1.005-1.030); Urobilinogen Urine Norm (Negative); pH Urine 7 (5-7)
[2021-04-10] VITALS (9 sets, daily range): BP systolic 99–127; BP diastolic 55–66; PULSE 77–104; RESP 14–20; TEMP 36.4–36.8; O2SAT 98–100
[2021-04-10 06:32] LABS: OR HCG Qualitative Urine Negative (Negative)
[2021-04-10] MEDS: scopolamine 1.5 Patch 1 PATCH TRANSDERMA (06:34)
[2021-04-10] MEDS: sodium chloride 0.9% 500 ML IV (06:35)
[2021-04-10] MEDS: sodium chloride 0.9% 1,000 ML 30 ML IV (06:36)
--- NOTE | 2021-04-10 06:44 | P.ANESUD_ITS ---
Pre-Anesthetic Update Pre-Anesthetic Assessment: Date of Surgery/Procedure: 04/10/21 Preop Nicole gnosis: Abnormal uterine bleeding, pelvic pain, ovarian cyst Proposed Procedure: Operation Date: 04/10/21 07:00 Proposed Procedures p Total Vaginal Hysterectomy 43475 n93.9(Not Applicable) - Phani Lopez MD Any changes to Pre-Anesthetic Assessment?: No Last Intake: Intake Last Liquid Date 04/09/21 Last Solid Date 04/09/21 Labs Last 48hrs: Laboratory Results - last 48 hr 04/08/21 04/08/21 04/08/21 10:15 10:15 10:30 WBC 4.2 RBC 5.16 Hgb 15.3 Hct 49.2 H MCV 95.3 MCH 29.7 MCHC 31.1 RDW 13.3 Plt Count 207 MPV 10.4 Neut % (Auto) 47.4 Lymph % (Auto) 44.1 [place] % (Auto) 6.4 Eos % (Auto) 1.7 Baso % (Auto) 0.2 Neut # (Auto) 2.00 Lymph # (Auto) 1.9 [place] # (Auto) 0.3 Eos # (Auto) 0.1 Baso # (Auto) 0.0 Nucleated RBC % (a uto) 0 Nucleated RBCs # 0.0 Sodium Potassium Chloride Carbon Dioxide Anion Gap BUN Creatinine GFR Calculation Glucose Calculated Osmolal ity Calcium Urine Color Yellow Urine Appearance Clear Urine pH 7 Ur Specific Gravit y 1.005 Urine Protein Neg Urine Glucose (UA) Norm Urine Ketones Negative Urine Blood 2+ H Urine Nitrate Negative Urine Bilirubin Neg Urine Urobilinogen Norm Ur Leukocyte Tana ase Negative Urine RBC 0-4 H Urine WBC None Ur Squamous Epith Cells None Amorphous Sediment Not Reportable Urine Bacteria Trace Urine HCG, Qual Negative Blood Type Rho(D) Type Antibody Screen Antibody Identific ation Crossmatch 04/08/21 04/08/21 04/10/21 10:30 10:30 06:31 WBC RBC Hgb Hct MCV MCH MCHC RDW Plt Count MPV Neut % (Auto) Lymph % (Auto) [place] % (Auto) Eos % (Auto) Baso % (Auto) Neut # (Auto) Lymph # (Auto) [place] # (Auto) Eos # (Auto) Baso # (Auto) Nucleated RBC % (a uto) Nucleated RBCs # Sodium 139 Potassium 3.9 Chloride 104 Carbon Dioxide 22 Anion Gap 16.9 BUN 10 Creatinine 0.4 L GFR Calculation 187.4 H Glucose 79 Calculated Osmolal ity 286 Calcium 8.7 Urine Color Urine Appearance Urine pH Ur Specific Gravit y Urine Protein Urine Glucose (UA) Urine Ketones Urine Blood Urine Nitrate Urine Bilirubin Urine Urobilinogen Ur Leukocyte Tana ase Urine RBC Urine WBC Ur Squamous Epith Cells Amorphous Sediment Urine Bacteria Urine HCG, Qual Negative Blood Type O Negative Rho(D) Type Negative / 0 Antibody Screen Positive Antibody Identific ation Anti-D Crossmatch See Detail Vitals: Temperature 98.3 F 04/10/21 06:28 Pulse Rate 78 04/10/21 06:28 Respiratory Rate 18 04/10/21 06:28 Blood Pressure 127/63 04/10/21 06:28 Blood Pressure Meghna n 84 04/10/21 06:28 Pulse Oximetry 99 04/10/21 06:28 Oxygen Delivery Me thod 04/10/21 06:28 Exam: Pre-Anes Outpt Exam: alert, oriented x 3, clear to auscultation bilaterally and regular rate & rhythm Cardiac Studies: No Data to Display
--- NOTE | 2021-04-10 06:47 | W.PM.OPSUD ---
Surgery/Procedure H&P Update DATE OF PROCEDURE: April 10, 2021 DATE H&P PERFORMED: 04/08/21 H&P UPDATE INFORMATION: I have reviewed H&P completed within last 30 days, I have examined patient prior to procedure and No changes to prior documentation PREOP DIAGNOSIS: Abnormal uterine bleeding, pelvic pain, ovarian cyst PLANNED PROCEDURE: Operation Date: 04/10/21 07:00 Proposed Procedures p Total Vaginal Hysterectomy 42045 n93.9(Not Applicable) - Phani Lopez MD
--- NOTE | 2021-04-10 08:05 | PM.OP ---
Operative Report Date of procedure: April 10, 2021 Pre-op Diagnosis: Abnormal uterine bleeding, pelvic pain, ovarian cyst Post-op diagnosis: same Procedure Done: Total vaginal hysterectomy Specimens removed/disposition: Uterus Surgeon: Phani Lopez MD Anesthesia: General Estimated blood loss (mL): 50 IV fluids (mL): 400 Urine output (mL): 400 Condition: stable Disposition: PACU Brief History: Ms. Suárez 30-year-old female with abnormal uterine bleeding unresponsive to medical management resulting in multiple blood transfusions, recurrent loss, hx of ectopic , pelvic pain and anemia Procedure: After informed consent and risks, benefits, indications and alternatives reviewed with the patient was taken to the operating room. The patient was placed in dorsal lithotomy position prepped, and draped in the usual sterile fashion. The pre-procedure timeout verifying the correct patient, procedure, site and side, could not requirements was performed and acknowledge by the OR team. A Chandler catheter was placed. A Bookwalter vaginal retractor was placed into the vagina in usual manner visualize the cervix. Cervix was grasped with a single tooth tenaculum and circumferentially infiltrated with 1% Xylocaine with epinephrine. Then cervix was circumferentially incised with bovie and the bladder was dissected off the pubovesical cervical fascia anteriorly with a sponge stick and Metzenbaum scissors. The anterior peritoneal reflection was identified and the anterior cul-de-sac was entered sharply with Metzenbaum scissors. The same procedure was performed posteriorly and a posterior colpotomy was made through the posterior cul-de-sac space without difficulty and the posterior blade of the Bookwalter vaginal retractor was advanced posteriorly into the cul-de-sac. At this time, the left and right uterosacral ligaments were isolated and ligated with 0 Vicryl. The Enseal device was placed over the uterosacral ligaments on either side and was then used in a serial fashion up through the cardinal ligaments bilaterally cross-clamped, cut, and sealed with the Enseal device. Finally, the uterine arteries were cross-clamped, cut, sealed and ligated with the Enseal device. Hemostasis was assured. The broad ligaments were then serially clamped, sealed and cut with the Enseal device on both sides. Excellent hemostasis was visualized. Both cornua were clamped, sealed and cut with the Enseal device. Then the pedicles were then suture ligated with excellent hemostasis. The uterus was excised and submitted for pathologic evaluation. No other abnormalities were noted in the pelvic cavity. The peritoneum was then closed in a pursestring fashion with 0 Vicryl suture. The vaginal cuff angles were closed with [id number] #0 Vicryl suture on both sides and transfixed with the ipsilateral cardinal and uterosacral ligaments. The remainder of the vaginal cuff was closed with #0 Vicryl in a running locked fashion. The patient was given indigo carmine IV. At this time, instruments were removed from the vagina at hemostasis assured. Chandler catheter was yielding clear judy urine then it turned blue. The patient was taken out of dorsal lithotomy position and awakened from the general anesthesia. The patient tolerated the procedure well and was taken to the PACU recovery room in a stable condition. Sponge, lap, needle and instruments counts were correct x3.
--- NOTE | 2021-04-10 08:12 | P.PCN_ITS ---
PACU note PACU note: VSS, Good respiratory effort, report to CITY AUDITOR Post-Anesthesia Exam: awake
--- NOTE | 2021-04-10 08:12 | PM.PACU ---
PACU note PACU note: VSS, Good respiratory effort, report to INSPECTOR Post-Anesthesia Exam: awake
--- NOTE | 2021-04-10 08:15 | SUR.PHASEI ---
0805: patient into pacu with simple mask in place and sats at 100. Patient asleep. gonzales in place, draining blue urine. no pain per faces. 0812: simple mask removed, patient on room air. sats at 99. no pain per faces.
--- NOTE | 2021-04-10 08:29 | SUR.PHASEI ---
0829: report given to Shira SEN. Patient wakes, no pain per faces. Room air sats at 98. gonzales in place and draining blue urine. ready to be transported to ops to be DC home.
[2021-04-10] MEDS: morphine 4 mg/mL SDV 1 mL IVP (09:27)
--- NOTE | 2021-04-10 15:35 | ANE.PACU2 ---
Inpatient post-anesthesia follow up: Airway intact: Yes Vital signs: Temperature 97.7 F Pulse Rate 84 Respiratory Rate 17 Blood Pressure 99/58 Pulse Oximetry 99 Oxygen Delivery Me thod Room Air Oxygen Flow Rate 6 Fraction of Inspir ed Oxygen Hydration adequate: Yes Nausea and vomiting: No Pain level: 2 Mental status: Baseline
== END 2021-04-10 11:29 | disposition home or self-care (01) ==
PROVIDERS: Anesthesiology; Visit Provider Obstetrics & Gynecology
PROC: (CPT 58260; principal; 2021-04-10 07:00)
DX: N93.9 Abnormal uterine and vaginal bleeding, unspecified (principal); R10.2 Pelvic and perineal pain
CPT/HCPCS: 58260; 36415; 80048; 80500; 81001; 81025; 84703; 85025; 86850; 86870; 86900; 86920; 88307; 96365; J0330; J0690; J1100; J2270; J2405; J2704; J3010; J3490; J7030; J7040

== ENCOUNTER → 2021-09-10 11:34 | Outpatient (BNVA) | payer SELFPAY | PROVIDERS: Visit Provider Obstetrics & Gynecology | DX: R53.83 Other fatigue (principal); F32.A Depression, unspecified | CPT/HCPCS: 83001; 84443 ==